=== PATIENT | female | born 1960 | race Caucasian/White ===

== ENCOUNTER 2024-09-01 11:00 | Outpatient (RCR) | payer MEDICARE, BC, SELFPAY ==
--- NOTE | 2024-08-24 16:03 | PT.OPE ---
PT [facility] Out[facility] Eval PT [facility] Outpatient Eval Start: 08/24/24 11:58 Freq: Status: Active Protocol: Document 08/24/24 11:59 EIE (Rec: 08/24/24 13:04 EIE [id number]) E-signed By Consuelo Serrano, PT Physical Therapy Outpatient Evaluation Insurance Information Recert Due Date 11/19/24 Insurance Name Medicare B Medical Diagnosis low back muscle spasm Treating Diagnosis low back pain, stiffness, muscle weakness, Referring MD Fleming Subjective Preferred Name Kaley Subjective Pt reports on 08/15 she picked up a piece of luggage and a few hours later she had severe back pain. She tried ice and heat and NSAIDs for several days with worsening symptoms. She was seen at urgent care Monday 08/21 and was prescribed mm relaxer. She had to stop taking NSAIDs because of her stomach started to get irritated. Slight improvement in symptoms since being seen on Friday. She has tried swimming, water walking, elliptical, ice, heat. She is most limited by sit to stand and standing straight up but can feel her back pain with all mobility and activities. Pt reports she had a similar incident about 35 years ago that resolved with PT and time . At baseline pt is very healthy , she regularly exercises at [employer] using elliptical, weight machines for upper and lower body, glider for cardio. She typically goes to the gym 6 days/week. Pain Comments 8/10 pain in mid low back, bilateral buttocks Date of Last Physician Visit 08/21/24 Current Work Status Retired Occupation Retired from [employer] 4 years ago, periodic coverage continues dermSearch periodically [facility] elderly [facility] Precautions Weight Bearing Status Full Weight Bearing Therapy Limitations/Systems Review Not Limited Objective Range of Motion Lumbar: Flexion fingertip to mid thigh, extension unable to reach neutral, side bending limited 90% B, rotation 15 deg R, 10 deg L Hip: flexion 100 R, 90 L (batres by pain B); ER 45 R, 40 L; IR 15 R, lacking 5 deg from neutral L - pain in low back at end range all hip mobility B Hamstrin deg B, R batres by tissue stretch, L by LBP Strength Hip: flexion 5-/5 B, ER 5/5 B, IR 5/5 B Knee: extension 5/5 B, flexion 5/5 Trunk strength: unable to tolerate abdominal strength testing flexion or extension due to pain; prone glute isometric unable to activate, prone hip extension unable to clear table Palpation Increased tissue tension & tender to palpation L>R paraspinals, glute max, glute med, piriformis, QL Hypomobile throughout spine PA and UPA, most tender L3-5 L>R though central also painful. Balance & Gait SLS balance ~5 sec B, gait forward flexed Posture standing in slight forward flexion Sensation/Reflexes sensation intact to light touch BLE Assessment Assessment/Impression Pt is a 64 year old female presenting to PT services with primary complaint acute onset low back pain following a lifting task last week. Upon evaluation she demonstrates significant reduction in trunk ROM, poor ability to engage abdominal and back musculature , pain with hip mobility L>R and difficulty with transfers. Lumbar accessory mobility is largely hypomobile with painful palpation and tissue guarding is evident bilaterally L>R. She will benefit from skilled PT services to address above impairments, reduce pain and return to prior level of function. At baseline pt is a very active individual with regular exercise routine, will benefit from skilled intervention to gradually return to prior exercise program without flare up of back pain symptoms. Recommending 1x/week x 8 weeks to assist with return to her typical gym exercise program of weights and cardio. Primary Functional Limitations Standing, walking, sit to stands, lifting, bending, sleeping, exercising Plan of Care Rehabilitation Potential Good Physical Therapy Goals SHORT TERM GOALS: to be completed within 3 weeks 1. Pt will demonstrate increased lumbar extension ROM in order to tolerate walking in neutral spine posture. 2. Pt will demonstrate tolerance for basic level core strengthening program to increase tolerance for light lifting activities during ADLs . MANAGER OF IT GOALS: to be completed within 8 weeks or by the time of discharge from PT services 1. Pt will demonstrate pain free ROM in lumbar and hip ROM in order to improve tolerance for ADLs. 2. Pt will demonstrate ability to complete sit to stand transfer without UE assist and without pain. 3. Pt will demonstrate independence with individualized HEP for self symptom management following discharge from PT services. Treatment Plan/Direct Interventions Manual Therapy,Neuromuscular Re-ed,Therapeutic Activities, Therapeutic Exercises Frequency/Duration 1x/week x 8 weeks Patient Will Be Discharged From Therapy Completion of LTG(s),Skills Plateau,Independent w/HEP, Independently Progressing Evaluation Billing Complexity Low Certification Information Provider Signature Required Communication Only-No Signature Required
== END 2024-12-30 23:59 | disposition home or self-care (01) ==
PROVIDERS: Visit Provider Family Medicine
DX: M62.830 Muscle spasm of back (principal); Z51.89 Encounter for other specified aftercare
CPT/HCPCS: 97110; 97140; 97161

== ENCOUNTER 2025-01-19 02:39 | Observation (INO) | payer MEDICARE, BC, SELFPAY ==
--- OUTSIDE RECORDS SUMMARY | 2004-08-28 19:00 | XMS_ITS | Continuity of Care Document ---
Author Organization ANTOINETTE Sim Address [address] [place] [address] Phone Care Team Providers Care Director Of Individual Giving Name Role Phone Bradly ALEXANDER MD, Bronson Unavailable Unavailable Advance Directives Directive Yes / No Effective Date File Name No Information Encounters Encounter Description Practice Location Reason(s) For Visit Diagnoses Date Provider Providers Copied on Encounter LILLIANA Sim, [address], [place], [place], [id number], [place] tel:[phone] No Information 5 Bradly ALEXANDER Bronson. [address], [facility], [place], [address], [place]. tel:[phone] Referring Provider: Andrew Riley MD, [address] [facility] [address] [facility] [address] [facility] [place], [address]. tel:[phone] Family History Family Member Type Diagnosis Age At Onset No Information Payers Payer name Insurance type Covered republican ID Authoriza tinixon(s) Blue Plus BL [id number] Social History Type Description Quantity Date Captured Comments Sex Female Smoking Status No Information Chief Complaint And Reason For Visit No Information Reason For Referral Reason For Referral No Information History Of Present Illness Encounter Date Complaint History Of Prese nt Illness No Information Functional Status Date Functional Assessmen t No Information Instructions Date Instruction Additional Infor mation No Information Assessments Type Assessment Date No Information Patient Care Teams Name Effective Dates (start - stop) Status Members No Information
--- OUTSIDE RECORDS SUMMARY | 2004-08-28 19:00 | XMS_ITS | Continuity of Care Document ---
Author Organization ANTOINETTE Sim Address [address] [place] [address] Phone Care Team Providers Care Pot Fisher Name Role Phone Bradly ALEXANDER MD, Bronson Unavailable Unavailable Advance Directives Directive Yes / No Effective Date File Name No Information Encounters Encounter Description Practice Location Reason(s) For Visit Diagnoses Date Provider Providers Copied on Encounter LILLIANA Sim, [address], [place], [place], [id number], [place] tel:[phone] No Information 5 Bradly ALEXANDER Bronson. [address], [facility], [place], [address], [place]. tel:[phone] Referring Provider: Andrew Riley MD, [address] [facility] [address] [facility] [place], [address]. tel:[phone] Family History Family Member Type Diagnosis Age At Onset No Information Payers Payer name Insurance type Covered democrat ID Authoriza tinixon(s) Blue Plus BL [id number] Social History Type Description Quantity Date Captured [...]
--- OUTSIDE RECORDS SUMMARY | 2022-07-05 08:31 | XMS_ITS | Continuity of Care Document ---
Author Organization [facility] Address [address] [address] [place] [address] Phone Care Team Providers Care Business Office Director Name Role Phone Macri Green CRNA Unavailable Unavai lable Allergies, Adverse Reactions, Alerts Substance Reaction Status Criticality No Known Allergies Active No Inform ation Medications Medication Instructions Dosage Effective Dates (start - stop) Status Comments gabapentin 300 mg capsule take 2 Capsule by oral route 3 times every day 600 MG - Active Vitamin D3 1,000 unit capsule take 1 Tablet by Oral route once 1 Tablet - Active turmeric root extract 500 mg capsule take 1 tablet by oral route every day 1 tablet - Active Metamucil Oral Powder take 1 teaspoon once or twice a day - Active Procedures Procedure Date Colonoscopy Flex; Dx (sep Pro) 22 Colonoscopy Flex; W/remov Les- 19 Colonoscopy Flex; W/bx 1/mx Level Iv-surg Path Gross/micro 19 Colonoscopy Flex; W/bx 1/mx Level Iv-surg Path Gross/micro 14 Offic/outpt E&m Estab Mod-hi 2 13 Offic/outpt E&m Estab Mod-hi 2 11 [id number] Init Inpt Cons New/est Mod-hi 9 Sigmoidoscopy Flex; W/contrl B 09 Subsqt Hosp-da E&m Minr Compl 9 Colonoscopy Flex; W/remov Les- 09 Level Iv-surg Path Gross/micro 09 Advance Directives Directive Yes / No Effective Date File Name No Information Encounters Encounter Description Practice Location Reason(s) For Visit Diagnoses Date Provider Providers Copied on Encounter [facility], [address] [address], [place], [place], [id number], [place] tel:[phone] [facility] No Information 2 Norma Covarrubias. [address] [facility], [address], [id number], [place]. tel:[phone] Referring Provider: Khai Bassett, [address], [address]. tel:[phone] [facility], [address] [address], [place], [place], [address], [place] tel:[phone] [facility] Symptoms or Concerns (chief complaint) Personal history of colonic polypsEncounte r for screening for malignant neoplasm of colonPersonal history of colonic polyps 2 Salomon Rildey. [address] [facility], [facility] [address], [place], [id number], [place]. tel:[phone] Awilda Kwon MD. tel:[phone] Provider: Referral Self, USE FOR SELF REFERRALS. [facility], [address] [address], [place], [place], [id number], [place] tel:[phone] [facility] No Information 2 Rodrigo Lovett. [address] [facility], [address], [id number], [place]. tel:[phone] [facility], [address] [address], [place], [place], [id number], [place] tel:[phone] [facility] Colorectal polypsPersonal history of colonic polypsEncounte r for screening for malignant neoplasm of colonBenign neoplasm of transverse colonBenign neoplasm of ascending colonBenign neoplasm of transverse colonPersonal history of colonic polyps 9 Herminio Jin. [address] [place] [address], [id number], [place]. tel:[phone] Awilda Kwon MD. tel:[phone] Provider: Nirmala Flores, [address] [place] [address], [address]. tel:[phone] [facility], [address] [address], [facility] [place], [id number], [place] tel:[phone] [facility] No Information Anya Borrego. [address] [place] [address], [id number], [place]. tel:[phone] [facility], [address] [address], [facility], [id number], [place] tel:[phone] [facility] Colon polypPersonal history of colon polypPersonal History Colon PolypsBenign Neoplasm Colon Chalino Silvestre. [address] [place] [address], [id number], [place]. tel:[phone] Offic/outpt E&m Estab Mod-hi 2 [facility], [address] [address], [facility] [place], [id number], [place] tel:[phone] [facility] Bloating (chief complaint) Rectal bleeding (chief complaint) Constipation UnspecifiedCon stipation UnspecifiedFla tul/eructat/ga s PainRectal Bleed/BRBPR 3 [facility] Garrett. [facility], [id number], [place]. tel:[phone] Offic/outpt E&m Estab Mod-hi 2 [facility], [address] [address], [place], [id number], [place] tel:[phone] [facility] Bloating (chief complaint) Constipati on (chief complaint) Constipation Unspecified 9201 1 Kaley Aparicio. [address] [place] [address], [id number], [place]. tel:[phone] Referring Provider: Eileen Garduno, [address] [place], [address]. tel:[phone] Init Inpt Cons New/est Mod-hi [facility], [address] [address], [facility], [place], [id number], [place] tel:[phone] [facility] No Information 9 Kush Jasso. [address] [place] [address], [id number], [place]. tel:[phone] Referring Provider: Karla Ricardo DO, [address] [place], [address]. tel:[phone] [facility], [address] [address], [facility], [id number], [place] tel:[phone] [facility] Colon Cancer ScreeningBenig n Neoplasm Lg Bowel 9 Salomon Ridley. [address] [place] [address], [id number], [place]. tel:[phone] Family History Family Member Type Diagnosis Age At Onset Father Problem (finding) First degree family history Problem (finding) No history of Cancer, colon Sister Problem (finding) Alive and well Mother Problem (finding) diverticulitis of colon Brother Problem (finding) Alive and well First degree family history Problem (finding) No history of Crohn's First degree family history Problem (finding) Colon Polyps First degree family history Problem (finding) No history of Ulcerative Colitis Immunizations Vaccine Date Status Comments SARS-COV-2 (COVID-19) vaccin e, mRNA, spike protein, LNP, preservative free, 30 mcg/0.3mL dose administered Note: [facility] bi-direct ional interface ; Source: Other Registry SARS-COV-2 (COVID-19) vaccin e, mRNA, spike protein, LNP, preservative free, 30 mcg/0.3mL dose administered Note: [facility] bi-direct ional interface ; Source: Other Registry SARS-COV-2 (COVID-19) vaccin e, mRNA, spike protein, LNP, preservative free, 30 mcg/0.3mL dose administered Note: [facility] bi-direct ional interface ; Source: Other Registry zoster vaccine recombinant administered N ote: [facility] bi-directional interface ; Source: Other Registry zoster vaccine recombinant administered N ote: [facility] bi-directional interface ; Source: Other Registry tetanus toxoid, reduced diphtheria toxoid, and acellular pertussis vaccine, adsorbed administered Note: [facility] b i-directional interface ; Source: Other Registry tetanus toxoid, reduced diphtheria toxoid, and acellular pertussis vaccine, adsorbed administered Note: [facility] b i-directional interface ; Source: Other Registry Payers Payer name Insurance type Covered republican ID Authorlisaa tinixon(s) Blue Cross [facility] [id number] Social History Type Description Quantity Date Captured Comments Sex Female Smoking Status No Information Chief Complaint And Reason For Visit No Information Reason For Referral Reason For Referral No Information History Of Present Illness Encounter Date Complaint History Of Prese nt Illness GI Symptoms or Concerns Functional Status Date Functional Assessmen t No Information Instructions Date Instruction Additional Infor mation Colon Cancer Prevention Related to Colon polyp Colon Polyps Related to Colon polyp Assessments Type Assessment Date No Information Patient Care Teams Name Effective Dates (start - stop) Status Members No Information
--- OUTSIDE RECORDS SUMMARY | 2022-07-05 08:31 | XMS_ITS | Continuity of Care Document ---
Author Organization [facility] Address [address] [address] [place] [address] Phone Care Team Providers Care Regulatory Consultant Name Role Phone Marci Green CRNA Unavailable Unavai lable Allergies, Adverse [...] Diagnoses Date Provider Providers Copied on Encounter [facility], [address] [address], [place], [place], [id number], [place] tel:[phone] [facility] No Information 2 Norma Covarrubias. [address] [facility], [address], [id number], [place]. tel:[phone] Referring Provider: Khai Bassett, [address], [address]. tel:[phone] [facility], [address] [address], [place], [place], [id number], [place] tel:[phone] [facility] [place] GI Symptoms or Concerns (chief complaint) Personal history of colonic polypsEncounte r for screening for malignant neoplasm of colonPersonal history of colonic polyps 2 Salomon Ridley. [address] [facility], [facility] [address], [place], [id number], [place]. tel:[phone] Awilda Kwon MD. tel:[phone] Provider: Referral Self, USE FOR SELF REFERRALS. [facility], [address] [address], [place], [place], [id number], [place] tel:[phone] [facility] No Information 2 Rodrigo Lovett. [address] [facility], [address], [id number], [place]. tel:[phone] [facility], [address] [address], [place], [place], [id number], [place] tel:[phone] [facility] [place] Colorectal polypsPersonal history of colonic polypsEncounte r for screening for malignant neoplasm of colonBenign neoplasm of transverse colonBenign neoplasm of ascending colonBenign neoplasm of transverse colonPersonal history of colonic polyps 9 Herminio Jin. [address] [place] [address], [id number], [place]. tel:[phone] Awilda Kwon MD. tel:[phone] Provider: Nirmala Flores, [address] [place] [address], [address]. tel:[phone] [facility], [address] [address], [facility] [place], [id number], [place] tel:[phone] [facility] No Information Anya Borrego. [address] [place] [address], [id number], [place]. tel:[phone] [facility], [address] [address], [facility], [id number], [place] tel:[phone] [facility] Colon polypPersonal history of colon polypPersonal History Colon PolypsBenign Neoplasm Colon Chalino Silvestre. [address] [place] [address], [id number], [place]. tel:[phone] Offic/outpt E&m Estab Mod-hi 2 [facility], [address] [address], [facility] [place], [id number], [place] tel:[phone] [facility] Bloating (chief complaint) Rectal bleeding (chief complaint) Constipation UnspecifiedCon stipation UnspecifiedFla tul/eructat/ga s PainRectal Bleed/BRBPR 3 [facility] [facility] Garrett. [facility] [address], [id number], [place]. tel:[phone] Offic/outpt E&m Estab Mod-hi 2 [facility], [address] [address], [place], [id number], [place] tel:[phone] [facility] Bloating (chief complaint) Constipati on (chief complaint) Constipation Unspecified 9201 1 Kaley Aparicio. [address] [place] [address], [id number], [place]. tel:[phone] Referring Provider: Eileen Garduno, [address] [place], [address]. tel:[phone] Init Inpt Cons New/est Mod-hi [facility], [address] [address], [facility], [place], [id number], [place] tel:[phone] [facility] No Information 9 Kush Jasso. [address] [place] [address], [id number], [place]. tel:[phone] Referring Provider: Karla Ricardo DO, [address] [place], [address]. tel:[phone] [facility], [address] [address], [facility], [place], [id number], [place] tel:[phone] [facility] Colon Cancer ScreeningBenig n Neoplasm Lg Bowel 9 Salomon Ridley. [address] [place] [address], [id number], [place]. tel:[phone] Family History Family Member Type Diagnosis Age [...] Registry Payers Payer name Insurance type Covered green party ID Authorlisaa tinixon(s) Blue Cross [facility] [id number] Social History Type Description Quantity Date Captured [...]
[2025-01-19] VITALS (7 sets, daily range): BP systolic 108–121; BP diastolic 59–77; PULSE 55–63; RESP 16; TEMP 36.1–36.9; O2SAT 95–100; BMI 21.2; BMI 22.3
--- OUTSIDE RECORDS SUMMARY | 2025-01-19 02:42 | XMS_ITS | Clinical Summary ---
Author Organization [facility] Address [address] [place] [address] Care Team Providers Care Director Home Health Name Role Phone Ellie Franz M.D. Primary Care Pro vider Source Comments Patient records contain information from all sites at [facility]. For routine questions regarding patient records, call [phone] during business hours, M-F 8:00 AM - 5:00 PM Central Time. Record requests for emergency care only can be directed to [phone] at any time.[facility] Allergies No known active allergies Medications cholecalcifero l (for_VITAMIN D3) 1,000 Unit capsule Take 1 capsule by mouth daily. 0 Active UNABLE TO FIND Med Name: Turmeric: 1 capsule daily Active psyllium husk (Metamucil) 3.4 gram/5.4 gram powder 1 Dose at bedtime. 3 Active B complex-vitami n (SUPER B-50) capsule Take 1 capsule by mouth daily. Active gabapentin (Neurontin) 300 mg capsuleIndicat ions:Paresthes ias Feet TAKE 2 CAPSULES BY MOUTH THREE TIMES DAILY 540 capsule 5 Active gabapentin (NEURONTIN) 300 mg capsuleIndicat ions:Paresthes ias Feet Take 2 capsules (600 mg total) by mouth 3 (three) times a day. 540 capsule 3 4 025 Discontinued Active Problems Problem Noted Date Diagnosed Date History Of Falling 01/22/2024 Tinnitus Bilateral 08/17/2020 Polyp Colon 06/18/2019 Neuropathy Peripheral 11/04/2002 Overview (09/24/2021): trigeminal neuralgia Encounters Date Type Department Care Team Description 12/17/2024 Refill Department of Family Medicine, [facility], in [address] [id number] Ellie Franz M.D. Med Refill from Last 3 Months Immunizations Immunization Administration Dates Next Due RZV (SHINGRIX) 08/17/2020,06/06/2020 Tdap 08/12/2022,02/18/2012,12/04/2011 influenza vaccine quad (FLUZ ONE/FLUARIX) (6 months and older)(PF) 05/28/2023,07/25/2022,06/06/2020 Family History Medical History Relation Name Comments MVA - Motor vehicle accident Father Coronary artery disease Mother Itzel Huff Dementia Mother Itzel Huff pacemaker Mother Itzel Huff Relation Name Status Comments Father Mother Itzel Huff Social History Tobacco Use Types Packs/Day Years Used Date Smoking Tobacco: Never Smokeless Tobacco: Never Tobacco Cessation:Counseling Given: Not Answered Alcohol Use Standard Drinks/Week Comments Yes 1 (1 standard drink = 0.6 oz pur e alcohol) Humiliation, Afraid, Rape, and Kick questionnair e Answer Date Recorded Within the last year, have y ou been afraid of your partner or ex-partner? No 05/17/2022 Within the last year, have y ou been humiliated or emotionally abused in other ways by your partner or ex-partner? No Within the last year, have y ou been kicked, hit, slapped, or otherwise physically hurt by your partner or ex-partner? No 05/17/2022 Within the last year, have y ou been raped or forced to have any kind of sexual activity by your partner or ex-partner? No 05/17/2022 Social Connection and Isolat ion Panel [NHANES] Answer Date Recorded In a typical week, how many times do you talk on the phone with family, friends, or neighbors? Once a week 05/17/2022 How often do you get togethe r with friends or relatives? Once a week 05/17/2022 How often do you attend chur ch or synagogue services? More than 4 times per year 05/17/2022 Do you belong to any clubs o r organizations such as jain groups, unions, fraternal or athletic groups, or school groups? Yes 05/17/2022 How often do you attend meet ings of the clubs or organizations you belong to? More than 4 times per year 05/17/2022 Are you , , di vorced, , never , or living with a partner? 05/17/2022 AUDIT-C Answer Date Recorded Q1: How often do you have a drink containing alc ohol? Monthly or less 05/17/2022 Q2: How many drinks containi ng alcohol do you have on a typical day when you are drinking? 1 or 2 05/17/2022 Q3: How often do you have si x or more drinks on one occasion? Never 05/17/2022 Overall Financial Resource Strain (CARDIA) Answe r Date Recorded How hard is it for you to pa y for the very basics like food, housing, medical care, and heating? Not hard at all 06/11/2023 PHQ-2 Answer Date Recorded PHQ-2 Score 1 08/12/2023 [facility] - Occupational Stress Questionnaire Answer Date Recorded Do you feel stress - tense, restless, nervous, or anxious, or unable to sleep at night because your mind is troubled all the time - these days? To some extent 05/17/2022 Exercise Vital Sign Answer Date Recorde d On average, how many days pe r week do you engage in moderate to strenuous exercise (like a brisk walk)? 7 days 06/11/2023 On average, how many minutes do you engage in exercise at this level? 100 min 06/11/2023 Hunger Vital Sign Answer Date Recorded Within the past 12 months, y ou worried that your food would run out before you got the money to buy more. Never true 06/11/20 23 Within the past 12 months, t he food you bought just didn't last and you didn't have money to get more. Never true 06/11/2023 PRAPARE - Transportation Answer Date Re corded In the past 12 months, has l ack of transportation kept you from medical appointments or from getting medications? No 03/2023 In the past 12 months, has l ack of transportation kept you from meetings, work, or from getting things needed for daily living? No 06/11/2023 Depression Answer Date Recor ded PHQ-9 Total Score (max 27) 12 09/14 Nutrition Answer Date Recorded On average, how many serving s of fruits and vegetables do you eat per day (serving size is equal to 1 cup or approximately the size of a tennis ball)? 0-2 06/11/2023 Dental Answer Date Recorded Dental: Regular Dentist Yes 09/23/19 Employment Answer Date Recorded Employment status Retired 06/11/2023 Housing Stability Answer Date Recorded What is your living situation today? I have a [facility] place to live 06/11/2023 Education Answer Date Recorded What is the highest level of school you have completed or the highest degree you have received? 12th grade 05/17/2022 Comments No Sex and Gender Information Value Date Recorded Sex Assigned at Female 05/17/2022 10:54 AM CDT Legal Sex Female 12:10 AM [employer] Gender Identity Female 05/08/2020 6:59 PM CDT Sexual Orientation Choose not to disclose 2019 5:21 PM [employer] Last Filed Vital Signs Vital Sign Reading Time Taken Comments Blood Pressure 108/67 01/22/2024 12:56 PM CDT Pulse 64 01/22/2024 12:56 PM CDT Temperature 36.5 C (97.7 F) 01/22/2024 12:56 PM CDT Respiratory Rate 14 08/15/2023 10:20 AM [employer] Oxygen Saturation 99% 01/22/2024 12:56 PM CDT Inhaled Oxygen Concentration - - Weight 55.8 kg (123 lb 0.3 oz) 01/22/2024 12:56 PM CDT Height 159.7 cm (5' 2.87) 01/22/2024 12:56 PM C DT Body Mass Index 21.88 01/22/2024 12:56 PM CDT Plan of Treatment Health Maintenance Due Date Last Done Comments CT Colonography 1960 Hepatitis C Screening 1960 Pneumococcal vaccine (50+ years) (1 of 1 - PCV) 2009 COVID-19 Vaccine ( season) 2024 07/25/2022, 07/16/2021, 12/05/2020, Additional history exists Influenza Vaccine (#1) 2024 , 07/25/2022, 06/06/2020 Depression Screening (Annual PHQ-2) 08/04/2024 Fall Risk Screen (Annual) 08/04/2024 Visit: Annual, age 65+ (or Medicare and <65) 01/21/2025 01/22/2024 Cologuard 05/05/2025 05/05/2022 (Perf ormed elsewhere) Mammogram 06/03/2025 06/03/2024, 05/06, 06/03/2023, Additional history exists Fasting Glucose for Diabetes Screening 06/18/2026 06/18/2023, 04/30/2022, 09/14/2019 Colonoscopy 07/05/2032 07/05/2022, 09/2021 (Performed elsewhere), 06/18/2019 (Performed elsewhere), Additional history exists Colorectal Cancer Surveillance 07/05/2032 DTaP,Tdap,and Td Vaccines (4 - Td or Tdap) 08/12/2032 08/12/2022, 02/18/2012, 12/04/2011 Zoster Vaccines Completed 08/17/2020, 06/06/2020 Bone Density Scan (Osteoporosis Screen) Discontinued 06/25/2024 IPV Vaccines Aged Out No longer eligi ble based on patient's age to complete this topic Procedures Procedure Name Priority Date/Time Associated Diagnosis Comments BASIC METABOLIC PANEL, S/P Routine 06/18/2023 11:45 AM [employer] Preoperative Exam from Last 3 Months or Most Recently Relevant to Health Maintenance Results * (ABNORMAL) Basic Metabolic Panel (06/18/2023 11:45 AM [employer]) Potassium, P 4.1 3.6 - 5.2 mmol/L 06/18/2023 12:06 PM [employer] CNFL Sodium, P 140 135 - 145 mmol/L 06/18/2023 12:06 PM [employer] CNFL Chloride, P 104 98 - 107 mmol/L 06/18/2023 12:06 PM [employer] CNFL Bicarbonate, P 28 22 - 29 mmol/L 06/18/2023 12:06 PM [employer] CNFL Anion Gap, P 8 7 - 15 06/18/2023 12:06 PM [employer] CNFL BUN (Blood Urea Nitrogen), P 11 6 - 21 mg/dL 06/18/2023 12:06 PM [employer] CNFL Creatinine 0.64 0.59 - 1.04 mg/dL 06/18/2023 12:06 PM [employer] CNFL Estimated GFR (eGFR) >90 >=60 mL/min/BSA 06/18/2023 12:06 PM [employer] CNFL Comment: Estimated GFR calculated using the 2020 CKD_EPI creatinine equation. Calcium, Total, P 10.5(H) 8.8 - 10.2 mg/dL 06/18/2023 12:06 PM [employer] CNFL Glucose, P 82 70 - 140 mg/dL 06/18/2023 12:06 PM [employer] CNFL Blood (Blood, Venous) 06/18/2023 11:45 AM [employer] 06/18/2023 11:47 AM [employer] Ana Lilia Waddell APRN, C.N.P. LAB BLOOD ADD-ON Maddie l Result [facility] [address] [place] [id number], [facility] CNFL [facility] in [address] [address] from Last 3 Months or Most Recently Relevant to Health Maintenance Insurance [employer] Care Teams Director Home Health Relationship Specialty Start Date End Date Ellie Franz M.D. [id number] [id number] PCP - General 07/03/23
--- OUTSIDE RECORDS SUMMARY | 2025-01-19 02:42 | XMS_ITS | Clinical Summary ---
Author Organization [employer] [facility] Address [address] [place] [id number] Care Team Providers Care Certified Coder Name Role Phone Silvestre Jara MD Primary Care Provider [phone] Timothy Ruelas MD Unavailable [phone] Allergies No known active allergies Medications psyllium husk (METAMUCIL) 3.4 gram/5.4 gram powd take 1 teaspoon once or twice a day 03/31/2013 Active turmeric root extract 500 mg cap Take 1 Tab by mouth once daily. 06/18/2019 Active cholecalciferol (VITAMIN D3) 1,000 unit capsule Take 1 Tab by mouth. 06/18/2019 Active gabapentin (NEURONTIN) 300 mg capsule TAKE 1 CAPSULE BY MOUTH 2 TIMES DAILY AND 2 CAPUSLES AT BEDTIME 12/22/2020 Active b complex vitamins (VITAMIN B COMPLEX) capsule Take 1 Capsule by mouth once daily. Active hydrOXYzine pamoate (VistariL) 25 mg capsuleIndicati ons:Anxiety Take 1 Capsule (25 mg) by mouth at bedtime. 30 Capsule 3 05/28/2023 Active cyanocobalamin (VITAMIN B12) as quarter tablet Take 500 mcg by mouth once daily. Active MAGNESIUM GLUCONATE ORAL Take by mouth. Active Active Problems Problem Noted Date Diagnosed Date Osteopenia 06/09/2024 Well female exam with routine gynecological exam 02/24/2018 Immunizations Immunization Administration Dates Next Due Influenza, IIV4 05/28/2023,07/25/2022 Tdap 08/12/2022,02/18/2012,12/04/2011 12/03/2021 Zoster (Shingrix-RZV, recombinant) 08/17/2020, Family History Medical History Relation Name Comments Dementia Mother Heart Disease Mother pacemaker Other Mother Cancer-breast No Family History Cancer-ovarian No Family History Uterine cancer No Family History Relation Name Status Comments Brother 1 Alive Brother 2 Alive Father Mother Other Other Dementia Sister Alive Social History Tobacco Use Types Packs/Day Years Used Date Smoking Tobacco: Never Smokeless Tobacco: Never Alcohol Use Standard Drinks/Week Comments Yes 0 (1 standard drink = 0.6 oz pur e alcohol) 1 beer per week PHQ-2 Answer Date Recorded PHQ-2 TOTAL SCORE 0 05/28/2023 Social Connections Answer Date Recorded Frequency of Communication with Friends and Fami ly 0 05/28/2023 Financial Resource Strain Answer Date R ecorded Difficulty of Paying Living Expenses 3 05/28/2023 Difficulty of Paying Living Expenses Not on file 05/28/2023 Food Insecurity Answer Date Recorded Do you worry your food will run out before you are able to buy more? 1 05/25/2023 Transportation Needs Answer Date Record ed Lack of Transportation (Medical) 1 05/28/2023 Housing Stability Answer Date Recorded What is your housing situation today? 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 Not on file Not on file Not o n file Obstetrics History Para Term AB IAB SAB Ectopic Multiple Livin g Live Births 0 0 0 0 0 0 0 0 0 0 0 Last Filed Vital Signs Vital Sign Reading Time Taken Comments Blood Pressure 84/58 07/20/2024 8:47 AM ETL TESTER Pulse 73 07/20/2024 8:47 AM ETL TESTER Temperature 36 C (96.8 F) 12/11/2007 10:17 AM CDT Respiratory Rate 16 12/11/2007 11:00 AM CDT Oxygen Saturation 99% 07/20/2024 8:47 AM ETL TESTER Inhaled Oxygen Concentration - - Weight 55.8 kg (123 lb) 07/20/2024 8:47 AM ETL TESTER Height 162.6 cm (5' 4) 05/28/2023 10:13 AM CDT Body Mass Index 21.11 05/28/2023 10:13 AM CDT Plan of Treatment Upcoming Encounters Date Type Department Care Team (Late st Contact Info) Description 07/19/2025 9:15 AM ETL TESTER Office Visit [facility] [address] [address] [place] [address] [place], [place] [id number] Health Maintenance Due Date Last Done Comments HIV for age 15-65 1974 Pneumococcal series for age 50+ (1 of 1 - PCV) 2009 COVID-19 vaccine series ( season) 2024 07/25/2022, 07/16/2021, 12/05/2020, Additional history exists Medicare Wellness for age 65+ 2024 BMI (ht and wt on same day) for age 18+ 05/28/2024 05/28/2023, 04/30/2022, 03/20/2021, Additional history exists Depression screening for age 12+ 05/28/2024 05/28/2023, 04/30/2022, 03/20/2021, Additional history exists Influenza Vaccine (Season Ended) 2025 05/28/2023, 07/25/2022 Mammogram for age 45-75 06/03/2025 06/03/20 24, 06/03/2023, 04/11/2022, Additional history exists Lipids for age 45-75 04/30/2027 04/30/2022, 02/24/2018, 01/29/2017, Additional history exists Colonoscopy through age 75 07/05/202707/05, 06/17/2014, 06/17/2014 [facility] Additional history exists Tetanus booster 08/12/2032 08/12/2022, 02/01, 12/04/2011 RSV vaccine for adults or (1 - 1-dose 75+ series) 2034 Hepatitis C screening for age 18-79 Completed 02/25/2019 Zoster (shingles) series for age 50+ Completed 08/17/2020, 06/06/2020 Tdap Completed 08/12/2022, 02/01, 12/04/2011 DEXA/DXA scan for age 65+ Completed 2023, 06/10/2023, 11/27/2009 Hepatitis B series for 19+ Aged Out N o longer eligible based on patient's age to complete this topic Procedures Procedure Name Priority Date/Time Associated Diagnosis Comments XR DXA BONE DENSITY 2 SITES AXIAL Routine 06/25/2024 10:40 AM ETL TESTER Postmenopausal Osteopenia, unspecified location XR MAMMO ARMEN BILAT SCREEN Routine 06/03/2024 4:30 PM CDT 1-5% of normal factor VIII (HC) SCAN-COLONOSCOPY 07/05/2022 1:30 PM ETL TESTER LIPID PANEL W REFLEX MEASURED LDL Routine 04/30/2022 11:38 AM CDT Annual physical exam ANTI HCV Routine 02/25/2019 1:17 PM CDT Need for hepatitis C screening test from Last 3 Months or Most Recently Relevant to Health Maintenance Results * XR DXA BONE DENSITY 2 SITES AXIAL [80171.1] (06/25/2024 10:40 AM ETL TESTER) Anatomical Region Laterality Modality Spine, HIPS, HIPL, HIPR Computed Radiography 06/25/2024 10:4 0 AM ETL TESTER Impressions 06/25/2024 12:04 PM ETL TESTER Low bone density (OSTEOPENIA). T score meets the WHO criteria for low bone density (osteopenia) at one or more measured sites. The risk of osteoporotic fracture increases approximately two-fold for each standard deviation decrease in T-score. Narrative 06/25/2024 12:04 PM ETL TESTER For Patients: As a result of the Cures Act, medical imaging exams and procedure reports are released immediately into your electronic medical record. You may view this report before your referring provider. If you have questions, please contact your health care provider. EXAM: XR DXA BONE DENSITY 2 SITES AXIAL LOCATION: [facility] DATE: 06/25/2024 INDICATION: BMD screening. Follow-up. DEMOGRAPHICS: Age- 64 years. Gender- Female. Menopausal status- Postmenopausal. COMPARISON: 06/10/2023. TECHNIQUE: Dual-energy x-ray absorptiometry (DXA) performed with routine technique. FINDINGS: DXA RESULTS -Lumbar Spine: L1-L4: BMD: 1.040 g/cm2. T-score: -1.2. Z-score: 0.7. Degenerative change may artifactually increase BMD. -RIGHT Hip Total: BMD: 0.795 g/cm2. T-score: -1.7. Z-score: -0.3. -RIGHT Hip Femoral neck: BMD: 0.781 g/cm2. T-score: -1.8. Z-score: -0.2. -LEFT Hip Total: BMD: 0.819 g/cm2. T-score: -1.5. Z-score: -0.1. -LEFT Hip Femoral neck: BMD: 0.994 g/cm2. T-score: -0.3. Z-score: 1.3. WHO T-SCORE CRITERIA -Normal: T score at or above -1 SD -Osteopenia: T score between -1 and -2.5 SD -Osteoporosis: T score at or below -2.5 SD The World Health Organization (WHO) criteria is applicable to perimenopausal females, postmenopausal females, and men aged 50 years or older. INTERVAL CHANGE -There has been a 3.0% increase in lumbar spine BMD. -There has been a 2.8% increase in bilateral hip BMD. FRACTURE RISK -FRAX Results: The 10 year probability of major osteoporotic fracture is 9.4%, and of hip fracture is 1.4%, based on right femoral neck BMD. RECOMMENDATIONS The current National Osteoporosis Foundation Guide recommends that FDA-approved medical therapies be considered if the 10 year probability of major osteoporotic fracture risk is greater than or equal to 20%, or if the hip fracture risk is greater than or equal to 3%. Please note all treatment decisions require clinical judgement and consideration of individual patient factors, including patient preferences, comorbidities, previous drug use, risk factors not captured in the FRAX model (e.g. frailty, falls, vitamin D deficiency, increased bone turnover, interval significant decline in bone density) and possible under or over-estimation of fracture risk by FRAX. Procedure Note Corina Rueda PA - 06/25/2024 For Patients: As a result of the Cures Act, medical imagingexams and procedure reports are released immediately into your electronicmedical record. You may view this report before your referring provider.If you have questions, please contact your health care provider. EXAM: XR DXA BONE DENSITY 2 SITES AXIAL LOCATION: [facility] DATE: 06/25/2024 INDICATION: BMD screening. Follow-up. DEMOGRAPHICS: Age- 64 years. Gender- Female. Menopausal status-Postmenopausal. COMPARISON: 06/10/2023. TECHNIQUE: Dual-energy x-ray absorptiometry (DXA) performed with routinetechnique. FINDINGS: DXA RESULTS -Lumbar Spine: L1-L4: BMD: 1.040 g/cm2. T-score: -1.2. Z-score: 0.7.Degenerative change may artifactually increase BMD. -RIGHT Hip Total: BMD: 0.795 g/cm2. T-score: -1.7. Z-score: -0.3. -RIGHT Hip Femoral neck: BMD: 0.781 g/cm2. T-score: -1.8. Z-score: -0.2. -LEFT Hip Total: BMD: 0.819 g/cm2. T-score: -1.5. Z-score: -0.1. -LEFT Hip Femoral neck: BMD: 0.994 g/cm2. T-score: -0.3. Z-score: 1.3. WHO T-SCORE CRITERIA -Normal: T score at or above -1 SD -Osteopenia: T score between -1 and -2.5 SD -Osteoporosis: T score at or below -2.5 SD The World Health Organization (WHO) criteria is applicable toperimenopausal females, postmenopausal females, and men aged 50 years orolder. INTERVAL CHANGE -There has been a 3.0% increase in lumbar spine BMD. -There has been a 2.8% increase in bilateral hip BMD. FRACTURE RISK -FRAX Results: The 10 year probability of major osteoporotic fracture is9.4%, and of hip fracture is 1.4%, based on right femoral neck BMD. RECOMMENDATIONS The current National Osteoporosis Foundation Guide recommends thatFDA-approved medical therapies be considered if the 10 year probability ofmajor osteoporotic fracture risk is greater than or equal to 20%, or ifthe hip fracture risk is greater than or equal to 3%. Please note alltreatment decisions require clinical judgement and consideration ofindividual patient factors, including patient preferences, comorbidities,previous drug use, risk factors not captured in the FRAX model (e.g.frailty, falls, vitamin D deficiency, increased bone turnover, intervalsignificant decline in bone density) and possible under or over- estimationof fracture risk by FRAX. IMPRESSION: Low bone density (OSTEOPENIA). T score meets the WHO criteria for low bonedensity (osteopenia) at one or more measured sites. The risk ofosteoporotic fracture increases approximately two-fold for each standarddeviation decrease in T-score. Charlette LANDAVERDE DEXA Final Res ult * XR MAMMO ARMEN BILAT SCREEN (06/03/2024 4:30 PM CDT) Anatomical Region Laterality Modality BREASTS, Breast Left, Breast Right Bilateral Mammography Impressions 06/04/2024 8:28 AM CDT There is no radiographic evidence for malignancy. Recommend annual mammograms. MAMMOGRAM ASSESSMENT: ACR 1 Negative PATIENTS: You will also receive a letter with your examination results in an easy to read format. If you have questions about your results, please contact your referring provider. Narrative 06/04/2024 8:28 AM CDT For Patients: As a result of the Century Cures Act, medical imaging exams and procedure reports are released immediately into your electronic medical record. You may view this report before your referring provider. If you have questions, please contact your health care provider. XR MAMMO ARMEN BILAT SCREEN [[id number]] CLINICAL HISTORY: This is an asymptomatic 64 y.o. patient. INDICATION FOR EXAM: Mammogram Screening. TECHNIQUE: CC & MLO views were obtained. This study was evaluated with the assistance of Computer-Aided Detection. Breast Tomosynthesis was used in interpretation. COMPARISON FILM: Yes 06/03/23 [facility] 04/11/22 [facility] FINDINGS: The breasts are extremely dense, which lowers the sensitivity of mammography. There are no dominant masses, suspicious micro calcifications or areas of architectural distortion. us Charlette LANDAVERDE MAMMO Final Res ult * SCAN-COLONOSCOPY (07/05/2022 1:30 PM ETL TESTER) Narrative Procedure Note Khai Latif MD - 07/05/2022 12:54 PM CST [facility] [address], [address], [place] [address] Patient Name: Kaley Nevarez Gender: Female Exam Date: 07/05/2022 Visit Number: [id number] Age: 62 Years 2 Months Date of : 1960 Attending MD: Khai Latif MD Medical Record#: [id number] ----- Procedure: Colonoscopy Indications: Previous adenomatous polyp(s), high risk colorectal cancerscreening Last exam TA x5 Referring MD: Referral Self Primary MD: Silvestre Jara MD Medications: Admitting Medications: 0.9% Normal Saline 500cc/hour Intra Procedure Medications: Patient received monitored anesthesia care. Complications: No immediate complications Procedure: An examination of the heart and lungs was performed and found to be withinacceptable limits. The patient was therefore deemed a reasonablecandidate for endoscopy and monitored anesthesia care. The risks and benefits of the procedure were explained to the patient.After obtaining informed consent, the patient received monitoredanesthesia care and I passed the scope without difficulty via the rectum to the cecum. The appendiceal orificeand ic valve were identified. The scope was retroflexed during theexamination The quality of the prep was good (Isac/Gat Split). This was a complete examination throughout the entire colon. Findings: The entire colon was normal. Impression: Personal history of colonic polyps impression comments: Long/tortuous/redundant colon, otherwise normal Normal colonoscopy Plan Repeat colonoscopy in 5 years. We will attempt to contact you at appropriate intervals via U.S. mail. Wemay not be able to find you or contact you at that time, therefore youshould know that the responsibility for following our recommendation restswith you. If you don't hear from us at the time your procedure is due,please contact our office to schedule an appointment. If your contactinformation should change, please contact our office so that we can updateyour records. Electronically signed by: Khai Latif MD 07/05/2022 Medications: Medication Dose Sig Description PRN Status PRN Reason Comments gabapentin 300 mg capsule 300 mg take 2 Capsule by oral route 3 timesevery day N taking as directed Metamucil Oral Powder take 1 teaspoon once or twice a day N taking asdirected turmeric root extract 500 mg capsule 500 mg take 1 tablet by oral routeevery day N taking as directed Vitamin D3 1,000 unit capsule 25 mcg (1,000 unit) take 1 Tablet by Oralroute once N taking as directed Allergies: Medication Name Ingredient Reaction Comment NO KNOWN ALLERGIES Vital Signs: Date Time Systolic Diastolic Height Weight BMI 07/05/2022 108 PM 119 60 64.50 in 117.00 19.80 Race: White Ethnicity: Not or Preferred Language: Polish cc: Silvestre Jara MD cc: Awilda Kwon MD [facility] [phone] us Khai Latif MD OTHER Final R esult * (ABNORMAL) LIPID PANEL W REFLEX MEASURED LDL (04/30/2022 11:38 AM CDT) CHOLESTEROL,TOTAL 232(H) 100 - 199 mg/dL 04/30/2022 12:08 PM CDT [facility] TRIGLYCERIDES 56 <150 mg/dL 04/30/2022 12:08 PM CDT [facility] HDL CHOLESTEROL 90 >40 mg/dL 12:08 PM CDT [facility] NON-HDL CHOLESTEROL 142 <145 mg/dl 04/30/2022 12:08 PM CDT [facility] CHOL/HDL RATIO 2.58 <4.50 04/30/2022 12:08 PM CDT [facility] LDL CHOLESTEROL 131(H) <=130 mg/dL 04/30/2022 12:08 PM CDT [facility] VLDL CHOLESTEROL 11 <=30 mg/dL 04/30/2022 12:08 PM CDT [facility] PROVIDER ORDERED STATUS RANDOM 04/30/2022 12:08 PM CDT [facility] Blood BLOOD SPECIMEN / Unknown Butterfly / Unknown 04/30/2022 11:38 AM CDT 04/30/2022 11:39 AM CDT us Sandhya Albert MD CHEMISTRY Final Resu lt [facility] SEND[facility] INTERNAL ZIP [address] [place] [address] * ANTI HCV (02/25/2019 1:17 PM CDT) HEPATITIS C ANTIBODY Non-React lolis Non-React lolis 02/25/2019 8:21 PM CDT [facility] Comment:Antibodies to HCV no t detected; does not exclude the possibility of exposure to HCV. Blood BLOOD SPECIMEN / Unknown Butterfly / Unknown 02/25/2019 1:17 PM CDT 02/25/2019 1:18 PM CDT us Awilda Kwon MD SEND OUTS Final R esult [facility] [address] [place] [address], from Last 3 Months or Most Recently Relevant to Health Maintenance Insurance [facility] MEDICARE PART A HB ONLY MEDICARE PART B HB ONLY MEDICARE PB ONLY Care Teams Certified Coder Relationship Specialty Start Date End Date Silvestre Jara MD PCP - General 06/09/09 [place] [address] [place] [address] Endocrinology Endocrinology 07/20/24
--- OUTSIDE RECORDS SUMMARY | 2025-01-19 02:42 | XMS_ITS | Encounter Summary ---
Author Organization [facility] Address [address] [place] [address] Care Team Providers Care Supervisor Publications Name Role Phone Ellie Franz M.D. Primary Care Pro vider Reason for Visit * Reason Comments Med Refill Encounter Details Date Type Department Care Team (Late st Contact Info) Description 12/17/2024 Refill Department of Family Medicine, [facility], in [address] [phone] Ellie Franz M.D. [address] [place] [phone] Med Refill Social History Tobacco Use Types Packs/Day Years Used Date Smoking Tobacco: Never Smokeless Tobacco: Never Alcohol Use Standard Drinks/Week Comments Yes 1 [...] often do you attend chur ch or baptist services? More than 4 times per year 05/17/2022 Do you belong to any clubs o r organizations such as sabianist groups, unions, fraternal or athletic groups, or [...] Answer Date Recorded PHQ-2 Score 1 08/12/2023 [facility] - Occupational [...] money to buy more. Never true 06/11/20 Within the past 12 months, t he [...] your living situation today? I have a [facility] place to live 06/11/2023 Education Answer Date Recorded What is the highest level of school you have completed or the highest degree you have received? 12th grade 05/17/2022 Comments No Sex and Gender Information Value Date Recorded Sex Assigned at Female 05/17/2022 10:54 AM CDT Legal Sex Female 12:10 AM DIRECTOR OF EMAIL MARKETING Gender Identity Female 05/08/2020 6:59 PM CDT Sexual Orientation Choose not to disclose 2019 5:21 PM DIRECTOR OF EMAIL MARKETING documented as of this encounter Plan of Treatment Not on file documented as of this encounter Visit Diagnoses Diagnosis Paresthesias Feet documented in this encounter Additional Health Concerns Assessment Noted Time PHQ-9 Depression Total Score: 12 020 6:51 AM DIRECTOR OF EMAIL MARKETING documented as of this encounter Care Teams Supervisor Publications Relationship Specialty Start Date End Date Ellie Franz M.D. [address] [phone] PCP - General 07/03/23 documented as of this encounter
--- OUTSIDE RECORDS SUMMARY | 2025-01-19 02:42 | XMS_ITS | Clinical Summary ---
Author Organization [facility] Address [address] [place] [address] Care Team Providers Care Test Tech Name Role Phone No Primary/Referring, Phy Primary Care Provider Unavailable Source Comments You are receiving this document as you are listed as the primary care provider,follow-up provider, or the patient has been referred to you for consultation.This is in compliance with the Medicare and[facility] EHR Incentive Program,which states Providers who transition their patient to another setting of careor provider of care or refers their patient to another provider of care shouldprovide summary care record for each transition of care or referral. [facility] No known active allergies Medications gabapentin (NEURONTIN) 300 MG capsule Take 1 capsule (300 mg) twice daily and 2 caps (600 mg) at bedtime. 07/10/2020 Active B Complex Vitamins capsule Take 1 Capsule by mouth daily. Active Glucosamine-Cho ndroitin 500-400 MG Take 1 Capsule by mouth daily. Active Cholecalciferol (VITAMIN D) 25 MCG (1000 UT) TABS Active cyclobenzaprine (FLEXERIL) 10 MG tabletIndicatio ns:Acute left-sided thoracic back pain (HRC),Acute upper back pain Take 1 Tablet (10 mg) by mouth three times a day as needed for Muscle Spasms. 20 Tablet 03/12/2023 Active Active Problems Problem Noted Date Diagnosed Date Tinnitus 08/17/2020 Benign neoplasm of transverse colon 06/22/2019 History of colonic polyps 06/18/2019 Polyp of colon 06/18/2019 Neuropathy, peripheral 11/04/2002 Overview (03/12/2023): trigeminal neuralgia Immunizations Immunization Administration Dates Next Due Influenza IIV4 (Quadrivalent) 0.5mL (56059) 07/05,06/06/2020 Pfizer Bivalent 12+ 07/25/2022 Pfizer Monovalent 12+ Purple Top 07/16/2021,05/0 11/2020,11/14/2020 Tdap 08/12/2022,02/18/2012,12/04/2011 Zoster RZV (Shingrix) 08/17/2020,06/06/2020 Social History Tobacco Use Types Packs/Day Years Used Date Smoking Tobacco: Never Smokeless Tobacco: Never Tobacco Cessation:Counseling Given: Not Answered PHQ-2 Answer Date Recorded PHQ-2 Score 1 07/25/2022 Comments Unknown Sex and Gender Information Value Date Recorded Sex Assigned at Not on file Legal Sex Female 3:18 PM CDT Gender Identity Female 06/18/2021 7:31 PM MEDICAL PHYSIOLOGIST Sexual Orientation Not on file Last Filed Vital Signs Vital Sign Reading Time Taken Comments Blood Pressure 124/57 03/12/2023 9:37 AM CDT Pulse 61 03/12/2023 9:37 AM CDT Temperature - - Respiratory Rate - - Oxygen Saturation - - Inhaled Oxygen Concentration - - Weight 54.7 kg (120 lb 9.6 oz) 03/12/2023 9:37 A M CDT Height - - Body Mass Index - - Plan of Treatment Health Maintenance Due Date Last Done Comments Cervical Cancer Screening Due 1960 Colon Cancer Screening Plan Due 1960 Adult Preventive Visit 1977 Pneumococcal Vaccine 50+ Yrs (1 of 1 - PCV) 2009 Cholesterol 02/24/2023 02/24/2018 (Completed) Mammogram 04/11/2023 04/11/2022, 03/04, 03/20/2021, Additional history exists COVID-19 Vaccine ( season) 2024 07/25/2022, 07/16/2021, 12/05/2020, Additional history exists Influenza Vaccine (Season Ended) 2025 07/25/2022, 06/06/2020 DTaP/Tdap/Td Vaccine (4 - Tdap) 08/12/2032 08/12/2022, 02/18/2012, 12/04/2011 RSV Vaccine (1 - 1-dose 75+ series) 2034 Hep C Screening (Preventive Services) Completed 02/25/2019 (Completed) Zoster/Shingles Vaccine Completed 08/17/2020, 06/06 HepA Vaccine Aged Out No longer eligi ble based on patient's age to complete this topic HepB Vaccine Aged Out No longer eligi ble based on patient's age to complete this topic Hib Vaccine Aged Out No longer eligi ble based on patient's age to complete this topic IPV (Polio) Vaccine Aged Out No longe r eligible based on patient's age to complete this topic MCV4 Vaccine Aged Out No longer eligi ble based on patient's age to complete this topic Meningococcal B Vaccine Aged Out No l onger eligible based on patient's age to complete this topic Insurance [facility] L[facility] Care Teams Test Tech Relationship Specialty Start Date End Date No Primary/Referring, Phy PCP - General 07/17/22
[2025-01-19 02:58] LABS: Appearance Urine Clear (Clear); Bilirubin Urine Negative (Negative); Blood Urine Negative (Negative); Color Urine Yellow (Yellow); Glucose Urine Negative (Negative); Ketones Urine Negative (Negative); Leukocyte Esterase Urine Negative (Negative); Nitrite Urine Negative (Negative); Protein Urine Negative (Negative); Urobilinogen Urine 0.2 (0.2-1.0); pH Urine 6.5 (5.0-8.5)
[2025-01-19 03:07] LABS: RBC Urine 0-2 (0-2); Squamous Epithelial Cell Urine Few (None-Few); WBC Urine 0-2 (0-5)
--- NOTE | 2025-01-19 03:15 | ED.GENADULT ---
HPI - General Adult General Chief complaint: Abdominal Pain Stated complaint: Left side abdominal pain, nausea Time Seen by Provider: 01/19/25 02:56 Source: patient Mode of arrival: ambulatory Limitations: no limitations History of Present Illness HPI narrative: 64-year-old female with a prior history of hysterectomy presents to the emergency department with sudden onset of left lower quadrant pain at about midnight. Pain 10/10, does not radiate. No fever. No bloody stools. Appetite had been normal up until midnight. Feels very nauseated, but has not vomited. Does not use any anticoagulants. Prior hysterectomy was 26 years ago, sounds like it was for fibroids, no history of cancer. Last colonoscopy was probably in about 23 she suspects it, had what sounds like a small polyp and then therefore was recommended to have a 5 year follow-up. Has not tried taking any medication to help with her pain. No prior history of similar symptoms. Pain present for about 2-1/2 hours at the time of her arrival. Only prior abdominal surgery is the hysterectomy, no others. No other recent signs of illness, productive cough, urinary symptoms, gynecological changes. Reports her past medical history is notable only for trigeminal neuralgia, takes gabapentin for this. Prior hysterectomy, nonsmoker. Healthy lifestyle. No pertinent travel. Only long-term medication is a gabapentin, no allergies. ROS is notable for the abdominal symptoms only, otherwise denies any acute changes times 12 systems. Related Data Home Medications ?Medication ?Instructions ?Recorded ?Confirmed gabapentin 300 mg capsule 600 mg PO 3XD 08/21/24 08/21/24 Previous Rx's ?Medication ?Instructions ?Recorded cyclobenzaprine 10 mg tablet 10 mg PO TID #20 tabs 08/21/24 Allergies Allergy/AdvReac Type Severity Reaction Status Date / Time No Known Drug Allergies Allergy Verified 08/21/24 09:20 [facility] Medical History Back spasm ?M62.830 - Muscle spasm of back (ICD-10) Social History Smoking Status: Never smoker How often do you have a drink containing alcohol: 2-4 times a month How many standard drinks containing alcohol do you have on a typical day: 1 or 2 How often do you have six or more drinks on one occasion: Never AUDIT-C Alcohol total score: 2 Non-prescribed substance use: denies use Exam Const: Vital Signs, click to edit/add: Vital Signs - 24 hr 01/19/25 02:42 01/19/25 04:11 Temperature 97.0 F L Pulse Rate [Left P ulse Oximeter] 59 L 60 Respiratory Rate 16 16 Blood Pressure [Ri ght Upper Arm] 121/75 118/69 Pulse Oximetry 99 98 Oxygen Delivery Me thod Room Air Room Air Documenting provider has reviewed patient's vital signs: yes Common normals: no apparent distress General appearance: cooperative and well kempt Other: Does appear uncomfortable, but very polite and cooperative. Excellent historian. HENMT: Mouth: oral and palatal mucosa normal Eye: Common normals: conjunctivae normal General eye: normal appearance of both eyes Conjunctiva: conjunctiva(e) normal Neck & C-Spine: Common normals: full ROM General: normal visual inspection Resp: Common normals: normal respiratory effort, no use of accessory muscles and clear to auscultation bilaterally Effort & inspection: able to speak in complete sentences Auscultation: clear to auscultation bilaterally Cardio: Common normals: regular rate, regular rhythm, S1 normal heart sound, S2 normal heart sound and no murmurs Rate: regular rate Rhythm: regular rhythm Heart sounds: S1 normal and S2 normal GI: Common normals: Normal to inspection, nondistended, normoactive bowel sounds present, soft to palpation, no hepatosplenomegaly and no masses Palpation: soft and no hepatosplenomegaly Other: Tender to palpation of left lower quadrant, mild guarding. No rebound tenderness. No obvious mass. : Common normals: no CVA tenderness Bladder/kidney exam: no CVA tenderness Back & Pelvis: Common normals: no CVA tenderness and thoracic and lumbar spine normal to inspection Extremity: Common normals: normal to inspection and normal capillary refill Neuro: Motor exam: no movement abnormalities noted Psych: Appearance: well kempt Attitude: engaged Activity/motor behavior: appropriate eye contact Insight: insight good Judgement: judgment good Skin: Common normals: no rashes or lesions noted General skin exam: no rashes or lesions noted Course Course ED Course: 64-year-old female with new onset left lower quadrant pain. Insidious onset with nausea suspicious for kidney stone. Cannot exclude ovarian torsion, volvulus, bowel obstruction, diverticulitis, musculoskeletal pain, radiculopathy, urinary infection, internal hernia, amongst many others. Will start with urinalysis. If blood is present, will proceed with CT without contrast. If blood is not present, will obtain typical intra-abdominal labs, CT with contrast. Will do a trial dose of Toradol and Zofran and see how this helps her pain while we await findings. Reevaluation(s) Time of Reevaluation #1: 04:35 Reevaluation #1: Initial CT findings reviewed with surgeon on-call. We are both a little concerned about the possible etiology. We both agree that the pictures are suboptimal due to the patient's low BMI. Radiology is recommending repeating the study with oral contrast which we will do. At this point she is not vomiting, there is no signs of sepsis. She reports that the Toradol did take the edge off of her pain, she is fine with the not adding additional medication for now. Will order the CT of the abdomen pelvis with oral and IV contrast and await next round of findings. Reevaluation #2: Second CT did help get better visualization. Reviewed findings with surgeon. Patient reports her pain is still 7/10 but she is quite stoic. Repeat exam does still show persistent tenderness in the suprapubic and left lower quadrant areas. Mild guarding, has decreased a little bit with the Toradol. Vital still remain stable. No vomiting. Discussed symptoms and findings with the surgical team. There is a lot of stool. We can definitely tell that there is some contrast getting through as we can see it in the portion of what appears to be partially obstructed bowel. She certainly is not fully obstructed with a closed loop obstruction or showing any signs of necrosis at this point. Would like to do is admit her to the hospitalist, keep her NPO, continue IV fluids, I asked about bowel prep, surgeon would like to hold off because she thinks that the contrast will probably cause a pretty strong laxative effect which does make sense. Will hand over care to hospitalist team. Vital Signs Vital signs: Initial Vital Signs Temperature 97.0 F L 01/19/25 02:42 Temperature Source Temporal Artery Scan 01/19/25 02:42 Pulse Rate 59 L 01/19/25 02:42 Pulse Rhythm Regular 01/19/25 02:42 Respiratory Rate 16 01/19/25 02:42 Blood Pressure 121/75 01/19/25 02:42 Blood Pressure Mean 90 01/19/25 02:42 Blood Pressure Position Sitting 01/19/25 02:42 Pulse Oximetry 99 01/19/25 02:42 Oxygen Delivery Method Room Air 01/19/25 02:42 Vital Signs Temperature 97.0 F L 01/19/25 02:42 Pulse Rate 59 L 01/19/25 02:42 Respiratory Rate 16 01/19/25 02:42 Blood Pressure 121/75 01/19/25 02:42 Pulse Oximetry 99 01/19/25 02:42 Oxygen Delivery Method Room Air 01/19/25 02:42 Temperature 97.0 F L 01/19/25 02:42 Pulse Rate 60 01/19/25 04:11 Respiratory Rate 16 01/19/25 04:11 Blood Pressure 118/69 01/19/25 04:11 Pulse Oximetry 98 01/19/25 04:11 Oxygen Delivery Method Room Air 01/19/25 04:11 Medications Administered Medications: Discontinued Medications Generic Name Dose Route Start Last Admin Trade Name Freq PRN Reason Stop Dose Admin Sodium Chloride 1,000 mls @ 1,000 mls/hr 01/19/25 04:46 01/19/25 07:23 0.9 % Sodium Chloride 1000 Ml IV 01/19/25 05:45 1,000 mls/hr .Q1H TATY Administration Ketorolac Tromethamine 15 mg 01/19/25 03:11 01/19/25 03:33 Ketorolac 15 Mg/Ml Inj IVP 01/19/25 03:12 15 mg ONCE ONE Administration Ondansetron HCl 4 mg 01/19/25 03:11 01/19/25 03:33 Ondansetron 2 Mg/Ml Inj IVP 01/19/25 03:12 4 mg ONCE ONE Administration Medical Decision Making Lab Data Lab results reviewed: Yes I reviewed the patient's lab results Lab results narrative: Labs are quite reassuring. No significant leukocytosis, CRP is normal. Lactate reassuring. Kidney function, electrolytes all look good. Amazing hemoglobin. Urinalysis not suspicious for infection or blood. Labs: Lab Results 01/19/25 01/19/25 01/19/25 Range/Units 02:50 03:11 03:30 WBC 6.02 (4.50-11.00) K/uL RBC 4.55 (4.00-5.20) m/uL Hgb 20.1 H (12.0-16.0) gm/dL Hct 42.1 (33.0-51.0) % MCV 93 (80-100) fL MCH 44 H (26-34) pg MCHC 48 H (32-36) gm/dL RDW Coeff of Enrique 13.6 (11.5-15.5) % Plt Count 213 (140-440) K/uL Neut % (Auto) 58.5 (42.0-72.0) % Lymph % (Auto) 30.1 (20-44) % [place] % (Auto) 7.1 (0.0-11.0) % Eos % (Auto) 3.2 (0.0-7.0) % Baso % (Auto) 0.3 (0.0-3.0) % Neut # (Auto) 3.52 (1.7-7.0) K/uL Lymph # (Auto) 1.81 (0.90-2.90) K/uL [place] # (Auto) 0.40 (0.00-0.90) K/UL Eos # (Auto) 0.19 (0.00-0.50) K/uL Baso # (Auto) 0.02 (0.00-0.30) K/uL Abs Immat Gran (auto) 0.05 (0.00-0.30) K/uL Imm/Tot Granulo (auto) 0.8 % Sodium 141 (135-149) mmol/L Potassium 3.6 (3.6-5.1) mmol/L Chloride 105 (96-114) mmol/L Carbon Dioxide 27 (20-32) mmol/L Anion Gap 9 (7-15) mEq/L BUN 10 (7-30) mg/dL Creatinine 0.7 (0.5-1.5) mg/dL Estimated Creat Clear 48.43 Estimated GFR 96 ml/min Glucose 103 (60-115) mg/dL Lactate 1.0 (0.5-1.9) mmol/L Calcium 10.8 H (8.4-10.6) mg/dL Total Bilirubin 0.7 (0.1-1.5) mg/dL AST 37 H (12-35) U/L ALT 23 (4-35) U/L Alkaline Phosphatase 89 (40-150) U/L C-Reactive Protein < 0.5 L (0.5-1.0) mg/dL Total Protein 7.6 (6.0-8.3) g/dL Albumin 4.7 (3.3-5.0) g/dL Lipase 96 (23-300) U/L Urine Color Yellow (Yellow) Urine Appearance Clear (Clear) Urine pH 6.5 (5.0-8.5) Ur Specific [place] 1.010 (1.000-1.030) Urine Protein Negative (Negative) Urine Glucose (UA) Negative (Negative) Urine Ketones Negative (Negative) Urine Blood Negative (Negative) Urine Nitrite Negative (Negative) Urine Bilirubin Negative (Negative) Urine Urobilinogen 0.2 (0.2-1.0) Ur Leukocyte Esterase Negative (Negative) Urine RBC 0-2 (0-2) Urine WBC 0-2 (0-5) Ur Squamous Epith Cells Few (None-Few) Urine Bacteria None (None) POC Creatinine 0.8 (0.6-1.3) mg/dl Imaging Data CT scan - abdomen: Attestation: I have reviewed the pertinent imaging results. My impression: Certainly some constipation but bigger concern being this abnormal appearing distal small bowel, looks obstructed but there is also something inflammatory in the right suprapubic area that I can not make out. Certainly no renal stone or hydronephrosis. Radiologist's impression: GASTROINTESTINAL SYSTEM: Abnormal dilation small bowel. There are air-fluid levels in this segment which appears to be distal jejunum or proximal ileum. There is a conglomeration of more distal small bowel in the right lower quadrant that is somewhat masslike. See for example series 2, image 74. This could be a developing small bowel obstruction associated with a possible mass or adhesed loops of small bowel in the right lower quadrant. From an imaging perspective, the best way to evaluate this further would be a repeat study with oral contrast. PELVIS: No mass, adenopathy or free fluid. OSSEOUS STRUCTURES and ABDOMINAL WALL: There is an age-appropriate appearance of the osseous structures.No significant abdominal wall defect. OTHER: No free fluid or free air. IMPRESSION: Findings suggesting a developing or incomplete mid small bowel obstruction. There is a masslike conglomeration of small bowel in the right lower quadrant which could be related to adhesed loops of small bowel or a neoplasm. Appropriate consultation is advised. From an imaging perspective, the best way to study this further would be a repeat study with oral contrast. CT abdomen with oral contrast: Attestation: I have reviewed the pertinent imaging results. Radiologist's impression: GASTROINTESTINAL SYSTEM: Oral contrast was administered for this study. There is mild persistence of dilation of small bowel. Specifically, this is distal jejunum or proximal ileum. This was noted on the earlier exam. The masslike conglomeration of bowel in the right lower quadrant does fill with contrast. There does not appear to be a malignancy on this oral contrast-enhanced study. However, this conglomeration is abnormal and may represent an internal hernia or adhesive loop of bowel. This does not appear to represent a closed loop obstruction. Surgical consultation is advised. PELVIS: No mass, adenopathy or free fluid. OSSEOUS STRUCTURES and ABDOMINAL WALL: There is an age-appropriate appearance of the osseous structures.No significant abdominal wall defect. OTHER: No free fluid or free air. IMPRESSION: 1. Redemonstration of findings suggesting an incomplete or early small bowel obstruction. The conglomeration of small bowel in the right lower quadrant again appears to be the cause of the presumed obstruction. It does not appear to be masslike on the current study as question on the earlier exam. The current findings given oral contrast suggests that this is due to an internal hernia or perhaps a conglomeration of adhesed bowel. Surgical consultation is advised. Discharge Plan Discharge Clinical Impression: Partial small bowel obstruction Patient Disposition: Admitted As Observation Condition: Stable
--- NOTE | 2025-01-19 03:16 | CRLHL7_ITS ---
For Patients: As a result of the 21st Century Cures Act, medical imaging exams and procedure reports are released immediately into your electronic medical record. You may view this report before your referring provider. If you have questions, please contact your health care provider. INDICATION: Left lower quadrant abdominal pain. COMPARISON: None TECHNIQUE: CT examination of the abdomen and pelvis was performed following the uneventful intravenous administration of 61 cc of Isovue 370. Thin section axial images were obtained from the lung bases through the pubic symphysis. Oral contrast was not administered. Please note that all CT scans at this facility use dose modulation, iterative reconstruction, and/or weight-based dosing when appropriate to reduce radiation dose to as low as reasonably achievable. FINDINGS: LUNG BASES: The lung bases as visualized appear normal.The heart size is normal at the lung bases. LIVER/BILIARY SYSTEM:Normal-sized liver. Fatty infiltration. Simple cyst right lobe. No biliary ductal dilation. Contracted but otherwise unremarkable appearing gallbladder ADRENALS: Normal KIDNEYS, URETERS and BLADDER:The kidneys appear normal. No visible mass, calculus or hydronephrosis. The ureters and bladder as visualized appear normal. SPLEEN:Normal appearance. PANCREAS: Appears normal. RETROPERITONEUM and MESENTERY: There is no mass, adenopathy or aortic aneurysm. Atherosclerotic vascular calcification GASTROINTESTINAL SYSTEM: Abnormal dilation small bowel. There are air-fluid levels in this segment which appears to be distal jejunum or proximal ileum. There is a conglomeration of more distal small bowel in the right lower quadrant that is somewhat masslike. See for example series 2, image 74. This could be a developing small bowel obstruction associated with a possible mass or adhesed loops of small bowel in the right lower quadrant. From an imaging perspective, the best way to evaluate this further would be a repeat study with oral contrast. PELVIS: No mass, adenopathy or free fluid. OSSEOUS STRUCTURES and ABDOMINAL WALL: There is an age-appropriate appearance of the osseous structures.No significant abdominal wall defect. OTHER: No free fluid or free air. IMPRESSION: Findings suggesting a developing or incomplete mid small bowel obstruction. There is a masslike conglomeration of small bowel in the right lower quadrant which could be related to adhesed loops of small bowel or a neoplasm. Appropriate consultation is advised. From an imaging perspective, the best way to study this further would be a repeat study with oral contrast. Please note that all CT scans at this facility use dose modulation, iterative reconstruction, and/or weight-based dosing when appropriate to reduce radiation dose to as low as reasonably achievable. Dictated by Bony Rocha MD @ 01/19/2025 4:19:42 AM (Electronically Signed)
[2025-01-19] MEDS: ONDANSETRON 2 MG/ML inj 4 MG IVP (03:33)
[2025-01-19] MEDS: KETOROLAC 15 MG/ML inj IVP (03:33)
[2025-01-19 03:48] LABS: Creatinine, Point-of-Care* 0.8 mg/dl (0.6-1.3)
[2025-01-19 03:49] LABS: Basophils Absolute Auto 0.02 K/uL (0.00-0.30); Basophils Percent Auto 0.3 % (0.0-3.0); Eosinophils Absolute Auto 0.19 K/uL (0.00-0.50); Eosinophils Percent Auto 3.2 % (0.0-7.0); Hematocrit 42.1 % (33.0-51.0); Hemoglobin* 20.1 gm/dL (12.0-16.0); Immature Granulocytes Abs Auto 0.05 K/uL (0.00-0.30); Immature Granulocytes Pct Auto 0.8 %; Lymphocytes Absolute Auto 1.81 K/uL (0.90-2.90); Lymphocytes Percent Auto 30.1 % (20-44); Mean Corpuscular HGB Conc 48 gm/dL (32-36); Mean Corpuscular Hemoglobin 44 pg (26-34); Mean Corpuscular Volume 93 fL (80-100); Monocytes Percent Auto 7.1 % (0.0-11.0); Neutrophils Absolute Auto 3.52 K/uL (1.7-7.0); Neutrophils Percent Auto 58.5 % (42.0-72.0); Platelet Count* 213 K/uL (140-440); RDW Coefficient of Variation % 13.6 % (11.5-15.5); Red Blood Count 4.55 m/uL (4.00-5.20); White Blood Count* 6.02 K/uL (4.50-11.00)
[2025-01-19 03:52] LABS: Slide Review Reflex No
[2025-01-19 04:03] LABS: Chloride* 105 mmol/L (96-114)
[2025-01-19 04:04] LABS: Albumin* 4.7 g/dL (3.3-5.0); Potassium* 3.6 mmol/L (3.6-5.1); Sodium* 141 mmol/L (135-149)
[2025-01-19 04:07] LABS: Alanine Aminotransferase* 23 U/L (4-35); Alkaline Phosphatase* 89 U/L (40-150); Anion Gap 9 mEq/L (7-15); Aspartate Amino Transferase* 37 U/L (12-35); Bilirubin Total* 0.7 mg/dL (0.1-1.5); Blood Urea Nitrogen* 10 mg/dL (7-30); Carbon Dioxide* 27 mmol/L (20-32); Creatinine* 0.7 mg/dL (0.5-1.5); Est. Creatinine Clearance* 48.43; Estimated Glomerular Filt Rate 96 ml/min; Lipase* 96 U/L (23-300)
[2025-01-19 04:08] LABS: Calcium* 10.8 mg/dL (8.4-10.6); Glucose* 103 mg/dL (60-115); Total Protein* 7.6 g/dL (6.0-8.3)
[2025-01-19 04:27] LABS: C Reactive Protein* < 0.5 mg/dL (0.5-1.0)
--- NOTE | 2025-01-19 04:34 | CRLHL7_ITS ---
For Patients: As a result of the Century Cures Act, medical imaging exams and procedure reports are released immediately into your electronic medical record. You may view this report before your referring provider. If you have questions, please contact your health care provider. INDICATION: Pain. Possible small-bowel obstruction. Possible mass. COMPARISON: Earlier the same day TECHNIQUE: CT examination of the abdomen and pelvis was performed following the uneventful intravenous administration of 61 cc of Isovue 370. Thin section axial images were obtained from the lung bases through the pubic symphysis. Oral contrast was administered. Sagittal and coronal reformatted imaging was Please note that all CT scans at this facility use dose modulation, iterative reconstruction, and/or weight-based dosing when appropriate to reduce radiation dose to as low as reasonably achievable. FINDINGS: LUNG BASES: The lung bases as visualized appear normal.The heart size is normal at the lung bases. LIVER/BILIARY SYSTEM:Hepatic steatosis. Simple cyst right lobe.No biliary ductal dilation. Normal appearing gallbladder ADRENALS: Normal KIDNEYS, URETERS and BLADDER:The kidneys appear normal. No visible mass, calculus or hydronephrosis. The ureters and bladder as visualized appear normal. SPLEEN:Normal appearance. PANCREAS: Appears normal. RETROPERITONEUM and MESENTERY: There is no mass, adenopathy or aortic aneurysm. Vascular calcifications noted GASTROINTESTINAL SYSTEM: Oral contrast was administered for this study. There is mild persistence of dilation of small bowel. Specifically, this is distal jejunum or proximal ileum. This was noted on the earlier exam. The masslike conglomeration of bowel in the right lower quadrant does fill with contrast. There does not appear to be a malignancy on this oral contrast-enhanced study. However, this conglomeration is abnormal and may represent an internal hernia or adhesive loop of bowel. This does not appear to represent a closed loop obstruction. Surgical consultation is advised. PELVIS: No mass, adenopathy or free fluid. OSSEOUS STRUCTURES and ABDOMINAL WALL: There is an age-appropriate appearance of the osseous structures.No significant abdominal wall defect. OTHER: No free fluid or free air. IMPRESSION: 1. Redemonstration of findings suggesting an incomplete or early small bowel obstruction. The conglomeration of small bowel in the right lower quadrant again appears to be the cause of the presumed obstruction. It does not appear to be masslike on the current study as question on the earlier exam. The current findings given oral contrast suggests that this is due to an internal hernia or perhaps a conglomeration of adhesed bowel. Surgical consultation is advised. 2. Other nonacute appearing findings as above Please note that all CT scans at this facility use dose modulation, iterative reconstruction, and/or weight-based dosing when appropriate to reduce radiation dose to as low as reasonably achievable. Dictated by Bony Rocha MD @ 01/19/2025 6:38:05 AM (Electronically Signed)
[2025-01-19] MEDS: 0.9 % SODIUM CHLORIDE 1000 ml 1,000 ML IV (07:23)
--- NOTE | 2025-01-19 08:44 | P.GSCN_ITS ---
History of Present Illness Consult details Date Seen: 01/19/25 Consult date: 01/19/25 Narrative: The patient is a 64-year-old female who presented to the emergency department overnight with abdominal pain. She states that she had a late dinner last evening around 8:30 p.m. and at midnight she woke up with severe left-sided pain. She states that it was excruciating. She tried drinking water with that made the pain worse. She tried a heating pad, however this did not help and she developed 10/10 pain. She was doubled over with discomfort and presented to the emergency department. In the emergency department she was given Toradol which helped. She did have some nausea and dry heaves when the pain came on. She has never had anything like this previously. She tried walking but that did not help. She states that if she sits up she does feel the discomfort. She has had a small amount of nausea since. Pain is primarily located in her left lower abdomen. She last had a bowel movement yesterday morning at 4:30 a.m.. She states she takes Metamucil and she has bowel movements daily which are soft. In the emergency department her labs were normal. She underwent a CT scan which showed a conglomerate of small bowel in the right lower abdomen. This appeared somewhat masslike and was thought to be possibly developing small bowel obstruction associated with mass or he has loop of small bowel. A CT with oral contrast was recommended. States that she had no pain or nausea drinking the oral contrast. This scan continued to show possible bowel obstruction in this area of bowel in the right lower abdomen. No mass was seen, however, bowel o bstruction was still in consideration. She has previously undergone an abdominal hysterectomy. She has had a colonoscopy in the past. She states that she does get them regularly. [facility] Medical History (Updated 01/19/25 @ 12:12 by Bettina Guerrero PA-C) Back spasm ?M62.830 - Muscle spasm of back (ICD-10) Surgical History (Updated 01/19/25 @ 16:22 by Summer Mari MD) Status post hysterectomy ?Z90.710 - Acquired absence of both cervix and uterus (ICD-10) Social History (Updated 01/19/25 @ 16:23 by Summer Mari MD) Narrative: She does not smoke. She drinks alcohol occasionally. She exercises regularly and is very active. What is your current living situation?: I presently have a place to live Problems where you live: no known problems Problems where you live details: none In the past 12 months, utilities in danger of being shut off: no In past 12 months, lack of transportation kept you from medical appts, meetings, work, or getting things needed for daily living: no In the past 12 mos, have been you worried that your food would run out before you had money to buy more?: never true In the past 12 mos, the food you bought just didn't last and you didn't have money to buy more?: never true Smoking Status: Never smoker How often do you have a drink containing alcohol: never How many standard drinks containing alcohol do you have on a typical day: 1 or 2 How often do you have six or more drinks on one occasion: Never AUDIT-C Alcohol total score: 0 Non-prescribed substance use: denies use Caffeine: Yes How often does anyone, including family, friends and others, physically hurt you : never How often does anyone, including family, friends and others, insult or talk down to you: never How often does anyone, including family, friends and others, threaten you with harm: never How often does anyone, including family, friends and others, scream or curse at you: never service: No Meds Home Medications and Allergies Home Medications ?Medication ?Instructions ?Recorded ?Confirmed ?Type gabapentin 300 mg capsule 600 mg PO TID 08/21/2401/19 History Allergies Allergy/AdvReac Type Severity Reaction Status Date / Time No Known Drug Allergies Allergy Verified 08/21/24 09:20 Exam Narrative: Exam Narrative: General appearance: Alert, cooperative, and in no distress Eyes: PERRLA, eye lids clear, and sclera white HENT Head: Normocephalic Ears: External ears normal Pulmonary: Breathing nonlabored on room air Cardiovascular Heart: Regular rate Extremities: warm and well perfused Gastrointestinal Abdominal: Abdomen is flat. She does have a Pfannenstiel scar consistent with prior hysterectomy. She is mildly tender without guarding or rebound in the left lower quadrant. No tenderness in the right abdomen. Musculoskeletal: Extremities: Upper: Both upper extremities have normal joint range of motion and intact strength. Lower: Both lower extremities have normal joint range of motion and intact strength. Skin: Normal skin color, texture, and turgor. Neurologic: No focal deficits Psychiatric: Alert, oriented, cooperative, normal affect. Const: Vital Signs, click to edit/add: Vital Signs - 24 hr 01/19/25 02:42 01/19/25 04:11 01/19/25 07:53 Temperature 97.0 F L 97.7 F Pulse Rate [Left P ulse Oximeter] 59 L 60 Pulse Rate [Right Radial] 61 Respiratory Rate 16 16 16 Blood Pressure [Ri ght Arm] 108/63 Blood Pressure [Ri ght Upper Arm] 121/75 118/69 Pulse Oximetry 99 98 100 Oxygen Delivery Me thod Room Air Room Air Room Air Results Labs Labs: Labs from ER showed a normal white blood cell count without left shift. CRP was normal. UA was negative. She did appear markedly hemoconcentrated with an initial hemoglobin of 20. AST was mildly elevated at 37. Calcium was also mildly elevated at 10.8. Lactate was normal at 1.0 Repeat labs 7 hours later continue to show a normal white blood cell count without left shift, hemoglobin of 14. Lactate remained normal at 1.3 Calcium in AST normalized. CRP remained less than 0.[address] scan report/results: report reviewed and image reviewed Additional studies: CT abdomen pelvis with IV contrast 01/19/2025: INDICATION: Left lower quadrant abdominal pain. COMPARISON: None TECHNIQUE: CT examination of the abdomen and pelvis was performed following the uneventful intravenous administration of 61 cc of Isovue 370. Thin section axial images were obtained from the lung bases through the pubic symphysis. Oral contrast was not administered. Please note that all CT scans at this facility use dose modulation, iterative reconstruction, and/or weight-based dosing when appropriate to reduce radiation dose to as low as reasonably achievable. FINDINGS: LUNG BASES: The lung bases as visualized appear normal.The heart size is normal at the lung bases. LIVER/BILIARY SYSTEM:Normal-sized liver. Fatty infiltration. Simple cyst right lobe. No biliary ductal dilation. Contracted but otherwise unremarkable appearing gallbladder ADRENALS: Normal KIDNEYS, URETERS and BLADDER:The kidneys appear normal. No visible mass, calculus or hydronephrosis. The ureters and bladder as visualized appear normal. SPLEEN:Normal appearance. PANCREAS: Appears normal. RETROPERITONEUM and MESENTERY: There is no mass, adenopathy or aortic aneurysm. Atherosclerotic vascular calcification GASTROINTESTINAL SYSTEM: Abnormal dilation small bowel. There are air-fluid levels in this segment which appears to be distal jejunum or proximal ileum. There is a conglomeration of more distal small bowel in the right lower quadrant that is somewhat masslike. See for example series 2, image 74. This could be a developing small bowel obstruction associated with a possible mass or adhesed loops of small bowel in the right lower quadrant. From an imaging perspective, the best way to evaluate this further would be a repeat study with oral contrast. PELVIS: No mass, adenopathy or free fluid. OSSEOUS STRUCTURES and ABDOMINAL WALL: There is an age-appropriate appearance of the osseous structures.No significant abdominal wall defect. OTHER: No free fluid or free air. IMPRESSION: Findings suggesting a developing or incomplete mid small bowel obstruction. There is a masslike conglomeration of small bowel in the right lower quadrant which could be related to adhesed loops of small bowel or a neoplasm. Appropriate consultation is advised. From an imaging perspective, the best way to study this further would be a repeat study with oral contrast. Please note that all CT scans at this facility use dose modulation, iterative reconstruction, and/or weight-based dosing when appropriate to reduce radiation dose to as low as reasonably achievable. Dictated by Bony Rocha MD @ 01/19/2025 4:19:[address] scan abdomen pelvis with oral contrast, 01/19/2025 Ordering Physician: Jeannette Hall M.D. Date of Service: 01/19/25 Procedure(s): CT abdomen pelvis w con Accession Number(s): [id number] cc: Provider,Not a Local; Jeannette Hall M.D.~ For Patients: As a result of the 21st Century Cures Act, medical imaging exams and procedure reports are released immediately into your electronic medical record. You may view this report before your referring provider. If you have questions, please contact your health care provider. INDICATION: Pain. Possible small-bowel obstruction. Possible mass. COMPARISON: Earlier the same day TECHNIQUE: CT examination of the abdomen and pelvis was performed following the uneventful intravenous administration of 61 cc of Isovue 370. Thin section axial images were obtained from the lung bases through the pubic symphysis. Oral contrast was administered. Sagittal and coronal reformatted imaging was Please note that all CT scans at this facility use dose modulation, iterative reconstruction, and/or weight-based dosing when appropriate to reduce radiation dose to as low as reasonably achievable. FINDINGS: LUNG BASES: The lung bases as visualized appear normal.The heart size is normal at the lung bases. LIVER/BILIARY SYSTEM:Hepatic steatosis. Simple cyst right lobe.No biliary ductal dilation. Normal appearing gallbladder ADRENALS: Normal KIDNEYS, URETERS and BLADDER:The kidneys appear normal. No visible mass, calculus or hydronephrosis. The ureters and bladder as visualized appear normal. SPLEEN:Normal appearance. PANCREAS: Appears normal. RETROPERITONEUM and MESENTERY: There is no mass, adenopathy or aortic aneurysm. Vascular calcifications noted GASTROINTESTINAL SYSTEM: Oral contrast was administered for this study. There is mild persistence of dilation of small bowel. Specifically, this is distal jejunum or proximal ileum. This was noted on the earlier exam. The masslike conglomeration of bowel in the right lower quadrant does fill with contrast. There does not appear to be a malignancy on this oral contrast-enhanced study. However, this conglomeration is abnormal and may represent an internal hernia or adhesive loop of bowel. This does not appear to represent a closed loop obstruction. Surgical consultation is advised. PELVIS: No mass, adenopathy or free fluid. OSSEOUS STRUCTURES and ABDOMINAL WALL: There is an age-appropriate appearance of the osseous structures.No significant abdominal wall defect. OTHER: No free fluid or free air. IMPRESSION: 1. Redemonstration of findings suggesting an incomplete or early small bowel obstruction. The conglomeration of small bowel in the right lower quadrant again appears to be the cause of the presumed obstruction. It does not appear to be masslike on the current study as question on the earlier exam. The current findings given oral contrast suggests that this is due to an internal hernia or perhaps a conglomeration of adhesed bowel. Surgical consultation is advised. 2. Other nonacute appearing findings as above Dictated by Bony Rocha MD @ 01/19/2025 6:38:05 AM Repeat abdominal x-ray done at 4:00 p.m. shows contrast within the colon. Radiology final read pending Progress Note:A&P Assessment and plan (1) Abdominal pain: Status: Acute (2) Partial small bowel obstruction: Status: Acute Plan The patient is a 64-year-old female with acute onset of left lower quadrant pain and CT findings concerning for possible bowel obstruction, however with passage of contrast into her colon. There is some concern for possible internal hernia in the right lower/mid abdomen radiographically, however this is not the location of the patient's pain. I discussed with the patient that since her labs appear normal and her pain is very specifically in the left lower abdomen, I recommend a continued conservative approach. Furthermore, a contrast has passed into her colon and there was no evidence of obstruction on follow-up x- ray. She does not describe a history of constipation, however she does have a large amount of stool in her colon, particularly her cecum. The contrast it may help facilitate clearance of this. Unclear cause for pain. patient was examined earlier in the morning and again in the afternoon. Exam remains unchanged. -recommend NPO status -recheck labs in the morning -please call surgery if patient develops change in clinical status such as worsening pain, tachycardia or fever.
[2025-01-19] MEDS: GABAPENTIN 300 MG CAPSULE 600 MG PO ×3 (09:38→21:06)
[2025-01-19] MEDS: SODIUM CHLORIDE 0.9 % (FLUSH) 10 ML SYRINGE 5 ML IVF ×2 (09:38→19:50)
[2025-01-19] MEDS: 0.9 % SODIUM CHLORIDE 1000 ml 1,000 ML 125 ML IV ×2 (09:42→17:13)
[2025-01-19 10:23] LABS: Basophils Absolute Auto 0.03 K/uL (0.00-0.30); Basophils Percent Auto 0.4 % (0.0-3.0); Eosinophils Absolute Auto 0.06 K/uL (0.00-0.50); Eosinophils Percent Auto 0.9 % (0.0-7.0); Hematocrit 41.6 % (33.0-51.0); Hemoglobin* 14.1 gm/dL (12.0-16.0); Immature Granulocytes Abs Auto 0.01 K/uL (0.00-0.30); Immature Granulocytes Pct Auto 0.1 %; Lymphocytes Absolute Auto 2.12 K/uL (0.90-2.90); Lymphocytes Percent Auto 31.5 % (20-44); Mean Corpuscular HGB Conc 34 gm/dL (32-36); Mean Corpuscular Hemoglobin 31 pg (26-34); Mean Corpuscular Volume 92 fL (80-100); Monocytes Percent Auto 4.8 % (0.0-11.0); Neutrophils Absolute Auto 4.19 K/uL (1.7-7.0); Neutrophils Percent Auto 62.3 % (42.0-72.0); Platelet Count* 196 K/uL (140-440); RDW Coefficient of Variation % 13.6 % (11.5-15.5); Red Blood Count 4.54 m/uL (4.00-5.20); White Blood Count* 6.73 K/uL (4.50-11.00)
[2025-01-19 10:24] LABS: Slide Review Reflex No
[2025-01-19 10:29] LABS: Lactate* 1.3 mmol/L (0.5-1.9)
[2025-01-19 11:00] LABS: Albumin* 4.3 g/dL (3.3-5.0); Chloride* 104 mmol/L (96-114)
[2025-01-19 11:01] LABS: Potassium* 4.4 mmol/L (3.6-5.1); Sodium* 137 mmol/L (135-149)
[2025-01-19 11:03] LABS: Alanine Aminotransferase* 23 U/L (4-35); Aspartate Amino Transferase* 35 U/L (12-35); Blood Urea Nitrogen* 8 mg/dL (7-30); Creatinine* 0.6 mg/dL (0.5-1.5); Estimated Glomerular Filt Rate 100 ml/min
[2025-01-19 11:04] LABS: Alkaline Phosphatase* 81 U/L (40-150); Anion Gap 6 mEq/L (7-15); Bilirubin Total* 0.7 mg/dL (0.1-1.5); Calcium* 10.3 mg/dL (8.4-10.6); Carbon Dioxide* 27 mmol/L (20-32); Glucose* 90 mg/dL (60-115); Total Protein* 6.9 g/dL (6.0-8.3)
[2025-01-19 11:22] LABS: C Reactive Protein* < 0.5 mg/dL (0.5-1.0)
--- NOTE | 2025-01-19 12:00 | PM.IMHP1 ---
Assessment and Plan Assessment and plan (1) Abdominal pain: Problem comment: Unremarkable labs, afebrile No vomiting, diarrhea CT suggesting incomplete or early small bowel obstruction, internal hernia or a conglomeration of adhesed bowel Moderate stool noted ED provider discussed with General surgery, Dr. Mari, admitted for IVF, NPO/bowel rest. No bowel prep recommended as oral contrast showed likely out to past stool Pain and nausea management as needed General surgery consulted - repeat labs unremarkable. Recommend repeat abd xray this afternoon Status: Acute (2) Partial small bowel obstruction: Problem comment: Findings suggesting a developing or incomplete mid small bowel obstruction Labs unremarkable Last BM less than 24 hours ago, passing gas, nausea without vomiting IVF, NPO for now Awaiting General surgery recommendations Status: Acute Total Time Spent Total Time Spent: Today I spent 75 minutes seeing the patient, reviewing Expanse and EPIC notes/diagnostics, discussing the care plan with our care time that includes social work, PT/OT, pharmacy, RT, jail and documenting my impressions and plan in the medical record. Hospitalist- H&P: HPI History of Present Illness Date Seen: 01/19/25 Chief complaint: Left side abdominal pain, nausea Narrative: Kaley Nevarez is a 64 year old female past medical history significant for occasional mild anxiety for which she takes gabapentin, history of hysterectomy 1994 and is otherwise quite healthy, exercising daily including going to the gym is admitted to medical floor from the ED with left lower quadrant pain. Patient is seen with spouse at bedside and reports onset left lower quadrant pain last night after eating a taco, assuming it was food poisoning. Awoke in the middle the night with this pain, attempting to manage it with a heating pad. Was nauseous with dry heaving but no actual vomiting. No diarrhea. Last BM was 4:30 a.m. the previous morning. No change in stools over the last several days. Reports passing gas today. No history of constipation. No blood in her stools. Denies UTI symptoms. No recent fevers. Denies recent headaches or dizziness. No chest pain or shortness of breath. No recent change in medications, diet, exercise. Lives in [place]. PCP is [place] Ana Lilia Serrano NP. Nonsmoker. Occasional alcohol use. Full code Review of Systems Narrative: REVIEW OF SYSTEMS: Complete review of systems performed and negative unless otherwise stated in HPI or below. Medical Decision Making Medical Decision Making Code Status: Full Has patient completed a Health Care Directive: Yes During This Stay, Who Would You Like To Make Decisions For You In The Event You Are Unable To Make Them For Yourself?: Praveen [facility] Medical History Back spasm ?M62.830 - Muscle spasm of back (ICD-10) Social History What is your current living situation?: I presently have a place to live Problems where you live: no known problems Problems where you live details: none In the past 12 months, utilities in danger of being shut off: no In past 12 months, lack of transportation kept you from medical appts, meetings, work, or getting things needed for daily living: no In the past 12 mos, have been you worried that your food would run out before you had money to buy more?: never true In the past 12 mos, the food you bought just didn't last and you didn't have money to buy more?: never true Smoking Status: Never smoker How often do you have a drink containing alcohol: never How many standard drinks containing alcohol do you have on a typical day: 1 or 2 How often do you have six or more drinks on one occasion: Never AUDIT-C Alcohol total score: 0 Non-prescribed substance use: denies use Caffeine: Yes How often does anyone, including family, friends and others, physically hurt you: never How often does anyone, including family, friends and others, insult or talk down to you: never How often does anyone, including family, friends and others, threaten you with harm: never How often does anyone, including family, friends and others, scream or curse at you: never service: No Meds Home Medications and Allergies Home Medications ?Medication ?Instructions ?Recorded ?Confirmed ?Type gabapentin 300 mg capsule 600 mg PO TID 08/21/24 01/19/25 History Allergies Allergy/AdvReac Type Severity Reaction Status Date / Time No Known Drug Allergies Allergy Verified 08/21/24 09:20 Exam Narrative: Exam Narrative: PHYSICAL EXAM General: Pleasant, conversant, NAD HEENT: Normocephalic, atraumatic, sclera white, EOMI, oral mucosa moist Cardiovascular: RRR, S1S2. No pitting edema Pulmonary: CTA bilaterally without rhonchi, rales, expiratory wheezes. No dyspnea on room air Abdominal: Soft, mildly distended, LLQ pain on palpation, no guarding. Quiet Neurological: Alert, answering questions appropriately, cranial nerves intact, no focal findings Extremities: No gross joint deformity or swelling. AROMI. Neurovascularly intact Skin: Warm, dry. Const: Vital Signs, click to edit/add: Vital Signs - 24 hr 01/19/25 02:42 01/19/25 04:11 01/19/25 07:53 Temperature 97.0 F L 97.7 F Pulse Rate [Left P ulse Oximeter] 59 L 60 Pulse Rate [Right Radial] 61 Respiratory Rate 16 16 16 Blood Pressure [Ri ght Arm] 108/63 Blood Pressure [Ri ght Upper Arm] 121/75 118/69 Pulse Oximetry 99 98 100 Oxygen Delivery Me thod Room Air Room Air Room Air 01/19/25 07:53 01/19/25 11:00 Temperature 98.0 F Pulse Rate [Left P ulse Oximeter] Pulse Rate [Right Radial] 63 Respiratory Rate 16 16 Blood Pressure [Ri ght Arm] 109/70 Blood Pressure [Ri ght Upper Arm] Pulse Oximetry 100 100 Oxygen Delivery Me thod Room Air Room Air Hospitalist - H&P: Result Labs Labs: Short CBC 01/19/25 01/19/25 Range/Units 03:30 10:07 WBC 6.02 6.73 (4.50-11.00) K/uL Hgb 20.1 H 14.1 (12.0-16.0) gm/dL Hct 42.1 41.6 (33.0-51.0) % Plt Count 213 196 (140-440) K/uL BMP 01/19/25 01/19/25 03:30 10:07 Sodium 141 137 Potassium 3.6 4.4 Chloride 105 104 Carbon Dioxide 27 27 BUN 10 8 Creatinine 0.7 0.6 Glucose 103 90 Calcium 10.8 H 10.3 Liver Function 01/19/25 01/19/25 Range/Units 03:30 10:07 Total Bilirubin 0.7 0.7 (0.1-1.5) mg/dL AST 37 H 35 (12-35) U/L ALT 23 23 (4-35) U/L Alkaline Phosphatase 89 81 (40-150) U/L Albumin 4.7 4.3 (3.3-5.0) g/dL Urine / Range/Units 02:50 Urine Color Yellow (Yellow) Urine Appearance Clear (Clear) Urine pH 6.5 (5.0-8.5) Ur Specific [place] 1.010 (1.000-1.030) Urine Protein Negative (Negative) Urine Glucose (UA) Negative (Negative) Imaging CT abdomen pelvis 2: Attestation: I have reviewed the pertinent imaging results. Radiologist's impression: CT examination of the abdomen and pelvis was performed following the uneventful intravenous administration of 61 cc of Isovue 370. Thin section axial images were obtained from the lung bases through the pubic symphysis. Oral contrast was not administered. Please note that all CT scans at this facility use dose modulation, iterative reconstruction, and/or weight-based dosing when appropriate to reduce radiation dose to as low as reasonably achievable. FINDINGS: LUNG BASES: The lung bases as visualized appear normal.The heart size is normal at the lung bases. LIVER/BILIARY SYSTEM:Normal-sized liver. Fatty infiltration. Simple cyst right lobe. No biliary ductal dilation. Contracted but otherwise unremarkable appearing gallbladder ADRENALS: Normal KIDNEYS, URETERS and BLADDER:The kidneys appear normal. No visible mass, calculus or hydronephrosis. The ureters and bladder as visualized appear normal. SPLEEN:Normal appearance. PANCREAS: Appears normal. RETROPERITONEUM and MESENTERY: There is no mass, adenopathy or aortic aneurysm. Atherosclerotic vascular calcification GASTROINTESTINAL SYSTEM: Abnormal dilation small bowel. There are air-fluid levels in this segment which appears to be distal jejunum or proximal ileum. There is a conglomeration of more distal small bowel in the right lower quadrant that is somewhat masslike. See for example series 2, image 74. This could be a developing small bowel obstruction associated with a possible mass or adhesed loops of small bowel in the right lower quadrant. From an imaging perspective, the best way to evaluate this further would be a repeat study with oral contrast. PELVIS: No mass, adenopathy or free fluid. OSSEOUS STRUCTURES and ABDOMINAL WALL: There is an age-appropriate appearance of the osseous structures.No significant abdominal wall defect. OTHER: No free fluid or free air. IMPRESSION: Findings suggesting a developing or incomplete mid small bowel obstruction. There is a masslike conglomeration of small bowel in the right lower quadrant which could be related to adhesed loops of small bowel or a neoplasm. Appropriate consultation is advised. From an imaging perspective, the best way to study this further would be a repeat study with oral contrast. CT abdomen pelvis 1: Attestation: I have reviewed the pertinent imaging results. Radiologist's impression: CT examination of the abdomen and pelvis was performed following the uneventful intravenous administration of 61 cc of Isovue 370. Thin section axial images were obtained from the lung bases through the pubic symphysis. Oral contrast was administered. Sagittal and coronal reformatted imaging was Please note that all CT scans at this facility use dose modulation, iterative reconstruction, and/or weight-based dosing when appropriate to reduce radiation dose to as low as reasonably achievable. FINDINGS: LUNG BASES: The lung bases as visualized appear normal.The heart size is normal at the lung bases. LIVER/BILIARY SYSTEM:Hepatic steatosis. Simple cyst right lobe.No biliary ductal dilation. Normal appearing gallbladder ADRENALS: Normal KIDNEYS, URETERS and BLADDER:The kidneys appear normal. No visible mass, calculus or hydronephrosis. The ureters and bladder as visualized appear normal. SPLEEN:Normal appearance. PANCREAS: Appears normal. RETROPERITONEUM and MESENTERY: There is no mass, adenopathy or aortic aneurysm. Vascular calcifications noted GASTROINTESTINAL SYSTEM: Oral contrast was administered for this study. There is mild persistence of dilation of small bowel. Specifically, this is distal jejunum or proximal ileum. This was noted on the earlier exam. The masslike conglomeration of bowel in the right lower quadrant does fill with contrast. There does not appear to be a malignancy on this oral contrast-enhanced study. However, this conglomeration is abnormal and may represent an internal hernia or adhesive loop of bowel. This does not appear to represent a closed loop obstruction. Surgical consultation is advised. PELVIS: No mass, adenopathy or free fluid. OSSEOUS STRUCTURES and ABDOMINAL WALL: There is an age-appropriate appearance of the osseous structures.No significant abdominal wall defect. OTHER: No free fluid or free air. IMPRESSION: 1. Redemonstration of findings suggesting an incomplete or early small bowel obstruction. The conglomeration of small bowel in the right lower quadrant again appears to be the cause of the presumed obstruction. It does not appear to be masslike on the current study as question on the earlier exam. The current findings given oral contrast suggests that this is due to an internal hernia or perhaps a conglomeration of adhesed bowel. Surgical consultation is advised. 2. Other nonacute appearing findings as above
--- NOTE | 2025-01-19 15:00 | CRLHL7_ITS ---
For Patients: As a result of the Century Cures Act, medical imaging exams and procedure reports are released immediately into your electronic medical record. You may view this report before your referring provider. If you have questions, please contact your health care provider. Indication: Question-satish small-bowel obstruction or internal hernia. Technique: Abdomen 1 view. Comparison: Same day CT abdomen and pelvis at 06:28 Findings: Most of the previously noted contrast in the proximal small bowel has now passed into the colon with moderate stool burden. No significant residual contrast in the small bowel or dilated loops. No findings for obstruction or perforation. No organomegaly or abdominal mass. Osseous structures are unremarkable for age. Normal lung bases. Impression: 1. Small bowel contrast has passed into the colon without residual small-bowel dilation. Unremarkable abdomen. Dictated by German Ham MD @ 01/19/2025 4:41:58 PM (Electronically Signed)
--- NOTE | 2025-01-19 19:42 | PC.NURSE ---
End of shift: Patient a/o x4, VSS, on RA. denies N/V/SOB. Patient rates pain 2-3/10. Ambulates independently to BR and hallways. reports passing gas. and Afebrile this shift. Patient's IV Left AC NS @ 125/mls.
[2025-01-19] MEDS: MORPHINE 4 MG/ML INJ IVP (19:50)
[2025-01-20] VITALS (7 sets, daily range): BP systolic 102–125; BP diastolic 57–72; PULSE 45–57; RESP 16–18; TEMP 36.3–36.6; O2SAT 98–100
[2025-01-20] MEDS: 0.9 % SODIUM CHLORIDE 1000 ml 1,000 ML 125 ML IV ×2 (01:15→09:11)
--- NOTE | 2025-01-20 05:21 | PC.NURSE ---
Shift note: Patient continue to be NPO with ice and oral medication privileges. Pain has been around 6/10. Patient refused pain medications except 1x Morphine 4mg at 2300. She endorsed mild nausea without vomiting which she required no medication. Bowel sound active in all 4 quadrants. Patient is independent in room. Ambulated in [address] tonight. Vitally stable. No fever recorded.
[2025-01-20 07:16] LABS: Hematocrit 38.3 % (33.0-51.0); Hemoglobin* 12.8 gm/dL (12.0-16.0); Mean Corpuscular HGB Conc 33 gm/dL (32-36); Mean Corpuscular Hemoglobin 31 pg (26-34); Mean Corpuscular Volume 94 fL (80-100); Platelet Count* 168 K/uL (140-440); Red Blood Count 4.08 m/uL (4.00-5.20); White Blood Count* 4.13 K/uL (4.50-11.00)
[2025-01-20 07:21] LABS: Slide Review Reflex No
[2025-01-20 07:39] LABS: Chloride* 108 mmol/L (96-114); Potassium* 4.1 mmol/L (3.6-5.1); Sodium* 138 mmol/L (135-149)
[2025-01-20 07:43] LABS: Anion Gap 4 mEq/L (7-15); Blood Urea Nitrogen* 7 mg/dL (7-30); Calcium* 9.6 mg/dL (8.4-10.6); Carbon Dioxide* 26 mmol/L (20-32); Creatinine* 0.6 mg/dL (0.5-1.5); Estimated Glomerular Filt Rate 100 ml/min; Glucose* 79 mg/dL (60-115)
[2025-01-20 07:50] LABS: C Reactive Protein* < 0.5 mg/dL (0.5-1.0)
--- NOTE | 2025-01-20 08:05 | PM.GSPN ---
Subjective Subjective Date Seen: 01/20/25 Interval history: Kaley lugo did have some nausea and pain overnight but states that she feels somewhat better today. The pain is still located in the left lower quadrant. She would like to eat if possible. Exam Narrative: Exam Narrative: General: No acute distress Abdomen: Flat, soft, minimally tender in the left lower quadrant without guarding or rebound. No tenderness on the right. Const: Vital Signs, click to edit/add: Vital Signs - 24 hr 01/19/25 11:00 01/19/25 15:00 01/19/25 15:00 Temperature 98.0 F 97.6 F Pulse Rate [Right Radial] 63 60 60 Respiratory Rate 16 16 16 Blood Pressure [Ri ght Arm] 109/70 114/63 Pulse Oximetry 100 100 Oxygen Delivery Me thod Room Air Room Air 01/19/25 19:00 01/19/25 22:40 01/19/25 22:40 Temperature 98.4 F 97.7 F Pulse Rate [Right Radial] 61 55 L 55 L Respiratory Rate 16 16 16 Blood Pressure [Ri ght Arm] 115/77 112/59 L Pulse Oximetry 96 95 Oxygen Delivery Me thod Room Air Room Air 01/20/25 02:45 Temperature 97.9 F Pulse Rate [Right Radial] 54 L Respiratory Rate 16 Blood Pressure [Ri ght Arm] 102/57 L Pulse Oximetry 100 Oxygen Delivery Me thod Room Air Labs/Imaging Labs Labs: White blood cell count today remains normal. CRP remains normal. Electrolytes within normal limits. Progress Note:A&P Assessment and plan (1) Abdominal pain: Status: Acute (2) Partial small bowel obstruction: Status: Acute Plan The patient is a 64-year-old female with abdominal pain of unclear etiology. CT scan shows a loop of bowel in her right mid abdomen which could represent an internal hernia, however is not found to be obstructed. She had passage of oral contrast into her colon yesterday though she does not have full return of bowel function today. Her pain, is not in the area of the CT abnormality. -because she is feeling better today, I recommend she have clear liquids. -would like to see improvement in pain and return of bowel function prior to discharge. Possibly pain will resolve after she has a bowel movement. I expect the oral contrast to have a laxative effect -will continue to follow
[2025-01-20] MEDS: ACETAMINOPHEN 325 MG TABLET 1000 MG PO ×2 (09:12→23:26)
[2025-01-20] MEDS: GABAPENTIN 300 MG CAPSULE 600 MG PO ×3 (09:12→21:31)
--- NOTE | 2025-01-20 15:05 | PM.IMPN1 ---
Assessment and Plan Assessment and plan (1) Abdominal pain: Problem comment: Unremarkable labs, afebrile No vomiting, diarrhea CT suggesting incomplete or early small bowel obstruction, internal hernia or a conglomeration of adhesed bowel Moderate stool noted ED provider discussed with General surgery, Dr. Mari, admitted for IVF, NPO/bowel rest. No bowel prep recommended as oral contrast showed likely out to past stool Pain and nausea management as needed General surgery consulted - repeat labs unremarkable. Recommend repeat abd xray this afternoon - showing contrast into the colon 01/20 improving with bowel rest. General surgery recommending advancing diet, slowly, awaiting return of bowel function. No specific etiology identified Status: Acute (2) Partial small bowel obstruction: Problem comment: Findings suggesting a developing or incomplete mid small bowel obstruction Labs unremarkable Last BM less than 24 hours ago, passing gas, nausea without vomiting IVF, NPO for now Awaiting General surgery recommendations Ruled out. Plain film showing contrast into the colon Status: Ruled-out Total Time Spent Total Time Spent: Today I spent 55 minutes seeing the patient, reviewing Expanse and EPIC notes/diagnostics, discussing the care plan with our care time that includes social work, PT/OT, pharmacy, RT, penitentiary and documenting my impressions and plan in the medical record. Subjective Date Seen: 01/20/25 Interval history: Patient is seen sitting up in a chair this morning. Reports feeling better. Did have an episode of pain last night for which she took morphine. Slept well. Pain has improved this morning. Still localized to the left lower quadrant. No fevers. No vomiting. Was passing gas yesterday, none yet today. Labs remain unremarkable. Exam Narrative: Exam Narrative: PHYSICAL EXAM General: Pleasant, conversant, NAD Cardiovascular: RRR, S1S2. No pitting edema Pulmonary: CTA bilaterally without rhonchi, rales, expiratory wheezes. No dyspnea on room air Abdominal: Soft, remains mildly distended, LLQ pain on palpation, no guarding Neurological: Alert, answering questions appropriately, cranial nerves intact, no focal findings Extremities: No gross joint deformity or swelling. AROMI. Neurovascularly intact Skin: Warm, dry. Const: Vital Signs, click to edit/add: Vital Signs - 24 hr 01/19/25 19:00 01/19/25 22:40 01/19/25 22:40 Temperature 98.4 F 97.7 F Pulse Rate [Right Radial] 61 55 L 55 L Respiratory Rate 16 16 16 Blood Pressure [Ri ght Arm] 115/77 112/59 L Pulse Oximetry 96 95 Oxygen Delivery Me thod Room Air Room Air 01/20/25 02:45 01/20/25 07:00 01/20/25 07:00 Temperature 97.9 F 97.8 F Pulse Rate [Right Radial] 54 L 57 L 57 L Respiratory Rate 16 16 16 Blood Pressure [Ri ght Arm] 102/57 L 114/64 Pulse Oximetry 100 100 Oxygen Delivery Me thod Room Air Room Air 01/20/25 12:07 Temperature 97.7 F Pulse Rate [Right Radial] 57 L Respiratory Rate 16 Blood Pressure [Ri ght Arm] 125/62 Pulse Oximetry 100 Oxygen Delivery Me thod Room Air Labs Labs: Laboratory Results - last 24 hr 01/20/25 06:42 WBC 4.13 L RBC 4.08 Hgb 12.8 Hct 38.3 MCV 94 MCH 31 MCHC 33 Plt Count 168 Sodium 138 Potassium 4.1 Chloride 108 Carbon Dioxide 26 Anion Gap 4 L BUN 7 Creatinine 0.6 Estimated Creat Clear 46.40 Estimated GFR 100 Glucose 79 Calcium 9.6 C-Reactive Protein < 0.5 L
--- NOTE | 2025-01-20 17:30 | PC.NURSE ---
End of shift-- Very pleasant and cooperative, alert and oriented patient. VSS and pt is afebrile. SPO2 >90% on RA. Pt c/o pain in lower abdomen which she stated was a dull ache and rated as high as 4 out of 10. She was given Tylenol this morning, but declined any other intervention. LS CTA. BS+ x4 but pt has had no BM yet. She denied nausea and tolerated a clear liquid breakfast and a full liquid lunch without difficulty. She was ambulating the hallways frequently this afternoon independently and tolerated it very well. Report to ERICK Raman and all questions were answered.
[2025-01-20] MEDS: SODIUM CHLORIDE 0.9 % (FLUSH) 10 ML SYRINGE 5 ML IVF (21:34)
--- NOTE | 2025-01-20 23:20 | PC.NURSE ---
Shift Note [id number]: Pt friendly and cooperative. Independent. Frequently ambulating hallways. VS WNL and LS COA. Bowel sounds present, however, pt denies flatus or BM. She is tolerating full liquids without difficulty and described mild cramping after eating 100% of a bowl of mashed potatoes for supper. Cramping resolved without intervention and pt was able to shower before HS. She is hoping to discharge home to her tomorrow 01/21.
[2025-01-21 03:12] VITALS: RESP 16
[2025-01-21 05:26] VITALS: RESP 16
--- NOTE | 2025-01-21 06:31 | PC.NURSE ---
End of shift note [id number]: Pt A&Ox4 and able to make needs known. She is independent with transferring and ambulation in room and in hallways. Pt has been denying nausea when asked with no vomiting noted. Pt tolerating full liquid diet and is continent of bladder. Bowel sounds active x 4 and pt reported having small formed/hard BM this morning though flushed before RN could assess. Per evening RN, pt did drink prune juice with supper last evening. PRN Tylenol given for mild pain to left lower abdomen. Pt on restful night VS per MD order. ?
[2025-01-21 06:46] LABS: Hematocrit 40.1 % (33.0-51.0); Hemoglobin* 13.7 gm/dL (12.0-16.0); Mean Corpuscular HGB Conc 34 gm/dL (32-36); Mean Corpuscular Hemoglobin 31 pg (26-34); Mean Corpuscular Volume 92 fL (80-100); Platelet Count* 172 K/uL (140-440); Red Blood Count 4.38 m/uL (4.00-5.20); White Blood Count* 4.24 K/uL (4.50-11.00)
[2025-01-21 06:48] LABS: Slide Review Reflex No
[2025-01-21 07:00] VITALS: BP 119/67; PULSE 61; RESP 16; TEMP 36.7; O2SAT 99
[2025-01-21 07:00] LABS: Chloride* 104 mmol/L (96-114); Potassium* 4.2 mmol/L (3.6-5.1); Sodium* 136 mmol/L (135-149)
[2025-01-21 07:03] LABS: Anion Gap 7 mEq/L (7-15); Blood Urea Nitrogen* 6 mg/dL (7-30); Carbon Dioxide* 25 mmol/L (20-32); Creatinine* 0.6 mg/dL (0.5-1.5); Estimated Glomerular Filt Rate 100 ml/min
[2025-01-21 07:04] LABS: Calcium* 10.4 mg/dL (8.4-10.6); Glucose* 87 mg/dL (60-115)
[2025-01-21] MEDS: SODIUM CHLORIDE 0.9 % (FLUSH) 10 ML SYRINGE 5 ML IVF (09:05)
[2025-01-21] MEDS: GABAPENTIN 300 MG CAPSULE 600 MG PO (09:05)
[2025-01-21 11:00] VITALS: BP 112/87; PULSE 57; RESP 16; TEMP 36.9; O2SAT 99
--- NOTE | 2025-01-21 11:15 | PM.DS1 ---
DS: Providers Provider Date Seen: 01/21/25 Date of admission: 01/19/25 07:41 Primary care physician: Yazan SANCHEZ Admitting Clinician: Lourdes Liu MD Consults: 01/19/25 09:01 Consult to Physician [CONS] Routine Comment: Consulting Provider: Summer Mari Has provider been notified: No Attending Physician on discharge: JERI Conway, PA-C [place] [facility] Date of Discharge: 01/21/25 DS: Diagnosis Discharge Diagnosis (1) Abdominal pain: Status: Acute Problem details: Unremarkable labs, afebrile No vomiting, diarrhea CT suggesting incomplete or early small bowel obstruction, internal hernia or a conglomeration of adhesed bowel Moderate stool noted ED provider discussed with General surgery, Dr. Mari, admitted for IVF, NPO/bowel rest. No bowel prep recommended as oral contrast showed likely out to past stool Pain and nausea management as needed General surgery consulted - repeat labs unremarkable. Recommend repeat abd xray this afternoon - showing contrast into the colon 01/20 improving with bowel rest. General surgery recommending advancing diet, slowly, awaiting return of bowel function. No specific etiology identified On day of discharge, patient remains vitally stable, afebrile. Labs have remained unremarkable. Pain has improved to 2/10. Remains in the left lower quadrant. Has had bowel movements. Tolerating orals without increase in pain or n/v. Source of pain remains unknown, location of LLQ pain does not fit with CT findings. Discharged home to slowly advance diet - bland diet. Close outpatient follow-up in the clinic next week. Consider outpatient GI consult. (2) Partial small bowel obstruction: Status: Ruled-out Problem details: Findings suggesting a developing or incomplete mid small bowel obstruction Labs unremarkable Last BM less than 24 hours ago, passing gas, nausea without vomiting IVF, NPO for now Awaiting General surgery recommendations Ruled out. Plain film showing contrast into the colon DS: Summary Hospital Course Hospital Course: Course of care and details as noted above. Remainder of chronic medical comorbidities were monitored and managed with home medications. Status at Discharge Functional status at discharge: independent ambulation Overall status at discharge: patient is back to baseline Time Spent with Patient Time attestation: Total time spent providing and/or coordinating discharge services: Time spent: Greater than 30 minutes Exam Narrative: Exam Narrative: PHYSICAL EXAM General: Pleasant, conversant, NAD Cardiovascular: RRR Pulmonary: No dyspnea Neurological: Alert, answering questions appropriately Skin: Warm, dry. Const: Vital Signs, click to edit/add: Vital Signs - 24 hr 01/20/25 12:07 01/20/25 15:00 01/20/25 15:00 Temperature 97.7 F 97.5 F L Pulse Rate [Right Radial] 57 L 45 L 45 L Respiratory Rate 16 18 18 Blood Pressure [Ri ght Arm] 125/62 115/68 Pulse Oximetry 100 98 Oxygen Delivery Me thod Room Air Room Air 01/20/25 19:00 01/20/25 23:30 01/20/25 23:40 Temperature 97.3 F L Pulse Rate [Right Radial] 53 L Respiratory Rate 18 16 16 Blood Pressure [Ri ght Arm] 111/72 Pulse Oximetry 100 Oxygen Delivery Me thod Room Air 01/21/25 03:12 01/21/25 05:26 01/21/25 07:00 Temperature 98.0 F Pulse Rate [Right Radial] 61 Respiratory Rate 16 16 16 Blood Pressure [Ri ght Arm] 119/67 Pulse Oximetry 99 Oxygen Delivery Me thod Room Air DS: Data Data Completed and Pending Labs on day of discharge: Labs from last 24 hours 01/21/25 06:24 WBC 4.24 L RBC 4.38 Hgb 13.7 Hct 40.1 MCV 92 MCH 31 MCHC 34 Plt Count 172 Sodium 136 Potassium 4.2 Chloride 104 Carbon Dioxide 25 Anion Gap 7 BUN 6 L Creatinine 0.6 Estimated Creat Clear 46.40 Estimated GFR 100 Glucose 87 Calcium 10.4 Imaging Abdominal x-ray: Attestation: I have reviewed the pertinent imaging results. Radiologist's impression: Most of the previously noted contrast in the proximal small bowel has now passed into the colon with moderate stool burden. No significant residual contrast in the small bowel or dilated loops. No findings for obstruction or perforation. No organomegaly or abdominal mass. Osseous structures are unremarkable for age. Normal lung bases. Impression: 1. Small bowel contrast has passed into the colon without residual small-bowel dilation. Unremarkable abdomen. CT scan - abdomen: Attestation: I have reviewed the pertinent imaging results. Radiologist's impression: Pain. Possible small-bowel obstruction. Possible mass. COMPARISON: Earlier the same day TECHNIQUE: CT examination of the abdomen and pelvis was performed following the uneventful intravenous administration of 61 cc of Isovue 370. Thin section axial images were obtained from the lung bases through the pubic symphysis. Oral contrast was administered. Sagittal and coronal reformatted imaging was Please note that all CT scans at this facility use dose modulation, iterative reconstruction, and/or weight-based dosing when appropriate to reduce radiation dose to as low as reasonably achievable. FINDINGS: LUNG BASES: The lung bases as visualized appear normal.The heart size is normal at the lung bases. LIVER/BILIARY SYSTEM:Hepatic steatosis. Simple cyst right lobe.No biliary ductal dilation. Normal appearing gallbladder ADRENALS: Normal KIDNEYS, URETERS and BLADDER:The kidneys appear normal. No visible mass, calculus or hydronephrosis. The ureters and bladder as visualized appear normal. SPLEEN:Normal appearance. PANCREAS: Appears normal. RETROPERITONEUM and MESENTERY: There is no mass, adenopathy or aortic aneurysm. Vascular calcifications noted GASTROINTESTINAL SYSTEM: Oral contrast was administered for this study. There is mild persistence of dilation of small bowel. Specifically, this is distal jejunum or proximal ileum. This was noted on the earlier exam. The masslike conglomeration of bowel in the right lower quadrant does fill with contrast. There does not appear to be a malignancy on this oral contrast-enhanced study. However, this conglomeration is abnormal and may represent an internal hernia or adhesive loop of bowel. This does not appear to represent a closed loop obstruction. Surgical consultation is advised. PELVIS: No mass, adenopathy or free fluid. OSSEOUS STRUCTURES and ABDOMINAL WALL: There is an age-appropriate appearance of the osseous structures.No significant abdominal wall defect. OTHER: No free fluid or free air. IMPRESSION: 1. Redemonstration of findings suggesting an incomplete or early small bowel obstruction. The conglomeration of small bowel in the right lower quadrant again appears to be the cause of the presumed obstruction. It does not appear to be masslike on the current study as question on the earlier exam. The current findings given oral contrast suggests that this is due to an internal hernia or perhaps a conglomeration of adhesed bowel. Surgical consultation is advised. 2. Other nonacute appearing findings as above Please note that all CT scans at this facility use dose modulation, iterative reconstruction, and/or weight-based dosing when appropriate to reduce radiation dose to as low as reasonably achievable. Dictated by Bony Rocha MD @ 01/19/2025 6:38:05 AM Left lower quadrant abdominal pain. COMPARISON: None TECHNIQUE: CT examination of the abdomen and pelvis was performed following the uneventful intravenous administration of 61 cc of Isovue 370. Thin section axial images were obtained from the lung bases through the pubic symphysis. Oral contrast was not administered. Please note that all CT scans at this facility use dose modulation, iterative reconstruction, and/or weight-based dosing when appropriate to reduce radiation dose to as low as reasonably achievable. FINDINGS: LUNG BASES: The lung bases as visualized appear normal.The heart size is normal at the lung bases. LIVER/BILIARY SYSTEM:Normal-sized liver. Fatty infiltration. Simple cyst right lobe. No biliary ductal dilation. Contracted but otherwise unremarkable appearing gallbladder ADRENALS: Normal KIDNEYS, URETERS and BLADDER:The kidneys appear normal. No visible mass, calculus or hydronephrosis. The ureters and bladder as visualized appear normal. SPLEEN:Normal appearance. PANCREAS: Appears normal. RETROPERITONEUM and MESENTERY: There is no mass, adenopathy or aortic aneurysm. Atherosclerotic vascular calcification GASTROINTESTINAL SYSTEM: Abnormal dilation small bowel. There are air-fluid levels in this segment which appears to be distal jejunum or proximal ileum. There is a conglomeration of more distal small bowel in the right lower quadrant that is somewhat masslike. See for example series 2, image 74. This could be a developing small bowel obstruction associated with a possible mass or adhesed loops of small bowel in the right lower quadrant. From an imaging perspective, the best way to evaluate this further would be a repeat study with oral contrast. PELVIS: No mass, adenopathy or free fluid. OSSEOUS STRUCTURES and ABDOMINAL WALL: There is an age-appropriate appearance of the osseous structures.No significant abdominal wall defect. OTHER: No free fluid or free air. IMPRESSION: Findings suggesting a developing or incomplete mid small bowel obstruction. There is a masslike conglomeration of small bowel in the right lower quadrant which could be related to adhesed loops of small bowel or a neoplasm. Appropriate consultation is advised. From an imaging perspective, the best way to study this further would be a repeat study with oral contrast. Discharge Plan Discharge Disposition: Home, Self-Care Date of Admission: 01/19/25 07:41 Attending Provider on Discharge: Bettina Guerrero Consulting Providers: Summer Mari Primary Care Provider: Provider,Not a Local Condition: Improved Anticipated Discharge Date/Time: 01/21/25 11:08 Discharge Medications: Continued gabapentin 300 mg capsule 600 mg PO TID Discharge Orders: Discharge Order (Routine); Ordered 01/21/25 Ordered By: Bettina Guerrero Activity Level: No Restrictions and Activity as Tolerated Diet Detail: [place] diet, avoid alcohol Follow Up Appointments: [facility] [Other] Referral Note: Post hospital follow up appt next week - she will be a new pt to the clinic Shreya Bustos MD [Staff Physician, Family Practice] - 01/27/25 9:00 am Referral Note: [facility] for hospital follow-up. Forms: [employer] Instructions Discharge Comments: Return to ED if new or worsening symptoms
--- NOTE | 2025-01-21 12:38 | PC.NURSE ---
Pt discharged @ 1235 via ambulation, accompanied by spouse. Back to home. IV removed. Belonging/discharge forms signed. Pt AxOx4, pain managed, good condition. Final room check complete.
== END 2025-01-21 12:35 | disposition home or self-care (01) ==
LOC: ED 07:12 → MEDSURG 07:41
PROVIDERS: Physician Assistant; Admitting Provider Family Medicine; Emergency Provider Family Medicine; Visit Provider Family Medicine
DX: R10.32 Left lower quadrant pain (principal); R11.0 Nausea; K59.00 Constipation, unspecified; F41.9 Anxiety disorder, unspecified; Z90.710 Acquired absence of both cervix and uterus
CPT/HCPCS: 36415; 74019; 74177; 80048; 80053; 81001; 82565; 83605; 83690; 85025; 85027; 86140; 96361; 96374; 96375; 99285; A9270; G0378; J1885; J2270; J2405; J7030; Q9967